=== PATIENT | female | born 1955 | race Caucasian/White ===

== ENCOUNTER → 2019-10-01 | Day surgery (SDC) | payer OTHER ==
--- NOTE | 2019-10-01 11:19 | RAD REPORT ---
EXAM DESCRIPTION: US - Guided FNA Non Breast - 10/01/2019 11:03 am CLINICAL HISTORY: TWO THY LESIONS Left lobe thyroid nodules COMPARISON: No comparisons FINDINGS: Preoperative diagnosis: Left lobe thyroid nodules. Post operative diagnosis: Same. Conscious Sedation: None Fluoroscopy time: None Contrast used: None Estimated blood loss: Minimal Specimens:Total of 10 25 gauge FNA specimens The neck was prepped and draped in the usual sterile fashion. 1% lidocaine was infiltrated into the s ubcutaneous tissues for local anesthesia. Real time ultrasound scanning of the left lobe demonstrated 2 circumscribed nodules; a 15 mm slightly rim calcified inferior nodule is noted without aggressive features; echogenic circumscribed nodule with areas of internal necrotic change mid lobe posteriorly also present measuring 12 mm.. Under ultrasound guidance, using multiple 25 gauge FNA needles, 5 spec imens through each nodule specimens were obtained and sent to pathology for evaluation. There were no complications. IMPRESSION: Successful ultrasound-guided left thyroid FNA procedure x2
--- NOTE | 2019-10-02 11:17 | RAD REPORT ---
EXAM DESCRIPTION: US - Guided FNA Non Breast - 10/01/2019 10:08 am CLINICAL HISTORY: TWO THY LESIONS Left lobe thyroid nodules COMPARISON: No comparisons FINDINGS: Preoperative diagnosis: Left lobe thyroid nodules . Post operative diagnosis: Same. Conscious Sedation: None Fluoroscopy time: None Contrast used: None Estimated blood loss: Minimal Specimens: Total of 10 25 gauge FNA specimens The neck was prepped and draped in the usual sterile fashion. 1% lidocaine was infiltrated into the s ubcutaneous tissues for local anesthesia. Real time ultrasound scanning of the left lobe demonstrated 2 circumscribed nodules; a 15 mm slightly rim calcified inferior nodule is noted without aggressive features; echogenic circumscribed nodule with areas of internal necrotic change mid lobe posteriorly also present measuring 12 mm. . Under ultrasound guidance, using multiple 25 gauge FNA needles, 5 spe cimens through each nodule specimens were obtained and sent to pathology for evaluation. There were n o complications. IMPRESSION: Successful ultrasound-guided left thyroid FNA procedure x2
== END | disposition home or self-care (01) ==
LOC: RAD 09:14
PROVIDERS: ATTEND Otolaryngology
PROC: 0G9G3ZX Drainage of Left Thyroid Gland Lobe, Percutaneous Approach, Diagnostic (ICD-10-PCS; principal; 2019-10-01)
PROC: BG44ZZZ Ultrasonography of Thyroid Gland (ICD-10-PCS; 2019-10-01)
DX: E04.2 Nontoxic multinodular goiter (principal); E03.9 Hypothyroidism, unspecified
CPT/HCPCS: 88162

== ENCOUNTER 2023-09-18 10:10 | Inpatient (IN) | payer OTHER ==
--- OUTSIDE RECORDS SUMMARY | 2023-09-18 10:17 | XMS REPORT | Continuity of Care Document ---
Author Name Unknown Address [address] [facility] [address] [place] [id number] [facility] Address [address] 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 Role Phone NANCI HYMANRandaRANDAL Primary Care Physician UnavailBRIDGET Tyson Attending Clinician BRIDGET Gonzalez Attending Clinician HEAVENLY Greene Attending Clinician Unavailable HEAVENLY HOWE Attending Clinician Unavailable Ned Amezcua NP Attending Clinician [phone] Doctor Unassigned, [place] Attending Clinician [facility], [facility] Attending Clinician Unavailable NED AMEZCUA Attending Clinician UnavailUte Manley MA Attending Clinician UnavailSandip Thornton MD Attending Clinician [phone] [place] Attending Clinician Unavailable Raquel Desai MA Attending Clinician Slava Falcon DO Attending Clinician [phone] HEAVENLY HOWE Admitting Clinician Unavailable Payers Payer Name Policy Type Policy Number Effective Date Expirati on Date Source [employer] MANAGED MEDICARE PPO-ANDREW [id number] 2021 00:00:00 Problems Condition Name Condition Details Condition Category Status Onset Date Resolution Date Last Treatment Date Treating Clinician Comments Source OLYA (stress urinary incontinen ce, female) OLYA (stress urinary incontinen ce, female) Disease Active 10-05 00:00: 00 Overview: Formattin g of this note might be different from the original. Added automatic ally from request for surgery [id number] [facility] Pap smear of cervix not needed Pap smear of cervix not needed Disease Active 10-02 00:00: 00 [facility] Colon cancer screening declined Colon cancer screening declined Disease Active 10-02 00:00: 00 [facility] History of hysterecto my History of hysterecto my Disease Active 10-02 00:00: 00 [facility] Need for vaccinatio n Need for vaccinatio n Disease Active 09-26 00:00: 00 [facility] Screening mammogram for breast cancer Screening mammogram for breast cancer Disease Active 09-26 00:00: 00 [facility] BMI 29.0-29.9, adult BMI 29.0-29.9, adult Disease Active 09-26 00:00: 00 [facility] Urgency of urination Urgency of urination Disease Active 09-23 00:00: 00 [facility] Urge incontinen ce of urine Urge incontinen ce of urine Disease Active 09-23 00:00: 00 [facility] Allergies, Adverse Reactions, Alerts Allergy Name Allergy Type Status Severity Reaction(s) Onset Date Inactive Date Treating Clinician Comments Source NO KNOWN ALLERGIE S Drug Class Active [facility] Social History Social Habit Start Date Stop Date Quantity Comments Source History SDOH Alcohol Comment [facility] History SDOH Alcohol Std Drinks [facility] History SDOH Alcohol Binge [facility] Alcohol intake 2023-02-13 00:00:00 2023-02-13 00:00:00 Ex-drinker (finding) [facility] Exposure to SARS-CoV-2 (event) 2022-11-21 00:00:00 2022-12-01 08:01:00 Not sure [facility] Tobacco use and exposure 2022-09-26 00:00:00 2022-09-26 00:00:00 Smokeless tobacco non-user [facility] History SDOH Alcohol Frequency 2020-09-17 00:00:00 2020-09-17 00:00:00 1 [facility] Sex Assigned At 1955 00:00:00 1955 00:00:00 [facility] Smoking Status Start Date Stop Date Source Never smoked tobacco [facility] Medications Ordered Medication Name Filled Medication Name Start Date Stop Date Current Medication? Ordering Clinician Indication Dosage Frequency Signature (SIG) Comments Components Source estradioL (ESTRACE) 0.01 % (0.1 mg/gram) vaginal cream 02-13 00:00: 00 Yes [id number] Apply 1g vaginally at bedtime 2 times per week [facility] estradioL (ESTRACE) 0.01 % (0.1 mg/gram) vaginal cream 02-13 00:00: 00 Yes [id number] Apply 1g vaginally at bedtime 2 times per week [facility] D5W-LR IV infusion 1,000 mL 10-20 17:15: 00 Yes 1000mL at 125 mL/hr, IV Infusion, CONTINUOUS , Starting on Katya 10/20/22 at 1115, Until Discontinu ed, Routine [facility] D5W-LR IV infusion 1,000 mL 10-20 17:15: 00 10-20 21:50 :25 No 1000mL at 125 mL/hr, IV Infusion, CONTINUOUS , Starting on Katya 10/20/22 at 1115, Until Katya 10/20/22 at 1550, Routine [facility] morpHINE (4 mg/mL) injection 2 mg 10-20 16:47: 49 Yes 2mg 2 mg, Slow IV Push, Q5MIN PRN, 5 doses, Starting on Katya 10/20/22 at 1047, Until Discontinu ed, Routine, Pain (scale 4-6), PACU [facility] proMETHazin e (PHENERGAN) 12.5 mg in NaCl 0.9% (NS) 50 mL IV piggyback 10-20 16:47: 49 Yes 12.5mg 12.5 mg, IV Piggyback, PRN, 1 dose, Starting on Katya 10/20/22 at 1047, Until Discontinu ed, Routine, Nausea and Vomiting (N/V), PACU [facility] morpHINE (4 mg/mL) injection 2 mg 10-20 16:47: 49 10-20 21:50 :25 No 2mg 2 mg, Slow IV Push, Q5MIN PRN, 5 doses, Starting on Katya 10/20/22 at 1047, Until Katya 10/20/22 at 1550, Routine, Pain (scale 4-6), PACU [facility] proMETHazin e (PHENERGAN) 12.5 mg in NaCl 0.9% (NS) 50 mL IV piggyback 10-20 16:47: 49 10-20 21:50 :25 No 12.5mg 12.5 mg, IV Piggyback, PRN, 1 dose, Starting on Katya 10/20/22 at 1047, Until Katya 10/20/22 at 1550, Routine, Nausea and Vomiting (N/V), PACU [facility] conjugated estrogens (PREMARIN) vaginal cream 10-20 16:19: 00 10-20 17:05 :00 No PRN, Starting on Katya 10/20/22 at 1019, Until Katya 10/20/22 at 1105, Routine, Intra-op [facility] vancomycin (VANCOCIN) injection 10-20 16:06: 00 10-20 17:05 :00 No PRN, Starting on Katya 10/20/22 at 1006, Until Katya 10/20/22 at 1105, ANDERS, Intra-op [facility] bupivacaine (preserv free) (SENSORCAIN E MPF) 0.25 % (2.5 mg/mL) injection 10-20 15:47: 00 10-20 17:05 :00 No PRN, Starting on Katya 10/20/22 at 0947, Until Katya 10/20/22 at 1105, Routine, Intra-op [facility] sodium chloride 0.9 % irrigation solution 10-20 15:46: 00 10-20 17:05 :00 No PRN, Starting on Katya 10/20/22 at 0946, Until Katya 10/20/22 at 1105, Intra-op [facility] NaCl 0.9% (NS) injection 10-20 15:46: 00 10-20 17:05 :00 No PRN, Starting on Katya 10/20/22 at 0946, Until Katya 10/20/22 at 1105, Routine, Intra-op [facility] water for irrigation irrigation solution 10-20 15:46: 00 10-20 17:05 :00 No PRN, Starting on Katya 10/20/22 at 0946, Until Katya 10/20/22 at 1105, Routine, Intra-op [facility] CALCIUM ORAL 10-20 13:50: 25 Yes Take by mouth. [facility] multivit with iron,minera ls (MULTIVITAM IN AND MINERALS ORAL) 10-20 13:50: 25 Yes Take by mouth. [facility] ascorbic acid (VITAMIN C ORAL) 10-20 13:50: 25 Yes Take by mouth. [facility] Ubidecar/Fi sh Oil/[place]-3 /Kashif (CO P30-[id number] OIL-OMEGA 3-E ORAL) 10-20 13:50: 25 Yes Take by mouth. [facility] loratadine 10 mg tablet 10-20 13:50: 25 Yes 10mg Take 10 mg by mouth daily. [facility] fluticasone propionate (FLONASE NASAL) 10-20 13:50: 25 Yes Use in each nostril. [facility] Levothyroxi ne 75 mcg capsule 10-20 13:50: 25 Yes Take by mouth. [facility] triamterene -hydrochlor othiazide 37.5-25 mg per capsule 10-20 13:50: 25 Yes 1{capsu le} Take 1 capsule by mouth every morning. [facility] CALCIUM ORAL 10-20 13:50: 25 Yes Take by mouth. [facility] multivit with iron,minera ls (MULTIVITAM IN AND MINERALS ORAL) 10-20 13:50: 25 Yes Take by mouth. [facility] ascorbic acid (VITAMIN C ORAL) 10-20 13:50: 25 Yes Take by mouth. [facility] Ubidecar/Fi sh Oil/[place]-3 /Kashif (CO [id number] OIL-OMEGA 3-E ORAL) 10-20 13:50: 25 Yes Take by mouth. [facility] loratadine 10 mg tablet 10-20 13:50: 25 Yes 10mg Take 10 mg by mouth daily. [facility] fluticasone propionate (FLONASE NASAL) 10-20 13:50: 25 Yes Use in each nostril. [facility] Levothyroxi ne 75 mcg capsule 10-20 13:50: 25 Yes Take by mouth. [facility] triamterene -hydrochlor othiazide 37.5-25 mg per capsule 10-20 13:50: 25 Yes 1{capsu le} Take 1 capsule by mouth every morning. [facility] CALCIUM ORAL 10-20 13:50: 25 Yes Take by mouth. [facility] multivit with iron,minera ls (MULTIVITAM IN AND MINERALS ORAL) 10-20 13:50: 25 Yes Take by mouth. [facility] ascorbic acid (VITAMIN C ORAL) 10-20 13:50: 25 Yes Take by mouth. [facility] Ubidecar/Fi sh Oil/[place]-3 /Kashif (CO [id number] OIL-OMEGA 3-E ORAL) 10-20 13:50: 25 Yes Take by mouth. [facility] loratadine 10 mg tablet 10-20 13:50: 25 Yes 10mg Take 10 mg by mouth daily. [facility] fluticasone propionate (FLONASE NASAL) 10-20 13:50: 25 Yes Use in each nostril. [facility] Levothyroxi ne 75 mcg capsule 10-20 13:50: 25 Yes Take by mouth. [facility] triamterene -hydrochlor othiazide 37.5-25 mg per capsule 10-20 13:50: 25 Yes 1{capsu le} Take 1 capsule by mouth every morning. [facility] CALCIUM ORAL 10-20 13:50: 25 Yes Take by mouth. [facility] multivit with iron,minera ls (MULTIVITAM IN AND MINERALS ORAL) 10-20 13:50: 25 Yes Take by mouth. [facility] ascorbic acid (VITAMIN C ORAL) 10-20 13:50: 25 Yes Take by mouth. [facility] Ubidecar/Fi sh Oil/[place]-3 /Kashif (CO [id number] OIL-OMEGA 3-E ORAL) 10-20 13:50: 25 Yes Take by mouth. [facility] loratadine 10 mg tablet 10-20 13:50: 25 Yes 10mg Take 10 mg by mouth daily. [facility] fluticasone propionate (FLONASE NASAL) 10-20 13:50: 25 Yes Use in each nostril. [facility] Levothyroxi ne 75 mcg capsule 10-20 13:50: 25 Yes Take by mouth. [facility] triamterene -hydrochlor othiazide 37.5-25 mg per capsule 10-20 13:50: 25 Yes 1{capsu le} Take 1 capsule by mouth every morning. [facility] CALCIUM ORAL 10-20 13:50: 25 Yes Take by mouth. [facility] multivit with iron,minera ls (MULTIVITAM IN AND MINERALS ORAL) 10-20 13:50: 25 Yes Take by mouth. [facility] ascorbic acid (VITAMIN C ORAL) 10-20 13:50: 25 Yes Take by mouth. [facility] Ubidecar/Fi sh Oil/[place]-3 /Kashif (CO [id number] OIL-OMEGA 3-E ORAL) 10-20 13:50: 25 Yes Take by mouth. [facility] loratadine 10 mg tablet 10-20 13:50: 25 Yes 10mg Take 10 mg by mouth daily. [facility] fluticasone propionate (FLONASE NASAL) 10-20 13:50: 25 Yes Use in each nostril. [facility] Levothyroxi ne 75 mcg capsule 10-20 13:50: 25 Yes Take by mouth. [facility] triamterene -hydrochlor othiazide 37.5-25 mg per capsule 10-20 13:50: 25 Yes 1{capsu le} Take 1 capsule by mouth every morning. [facility] CALCIUM ORAL 10-20 13:50: 25 Yes Take by mouth. [facility] multivit with iron,minera ls (MULTIVITAM IN AND MINERALS ORAL) 10-20 13:50: 25 Yes Take by mouth. [facility] ascorbic acid (VITAMIN C ORAL) 10-20 13:50: 25 Yes Take by mouth. [facility] Ubidecar/Fi sh Oil/[place]-3 /Kashif (CO X99-[id number] OIL-OMEGA 3-E ORAL) 10-20 13:50: 25 Yes Take by mouth. [facility] loratadine 10 mg tablet 10-20 13:50: 25 Yes 10mg Take 10 mg by mouth daily. [facility] fluticasone propionate (FLONASE NASAL) 10-20 13:50: 25 Yes Use in each nostril. [facility] Levothyroxi ne 75 mcg capsule 10-20 13:50: 25 Yes Take by mouth. [facility] triamterene -hydrochlor othiazide 37.5-25 mg per capsule 10-20 13:50: 25 Yes 1{capsu le} Take 1 capsule by mouth every morning. [facility] CALCIUM ORAL 10-20 13:50: 25 Yes Take by mouth. [facility] multivit with iron,minera ls (MULTIVITAM IN AND MINERALS ORAL) 10-20 13:50: 25 Yes Take by mouth. [facility] ascorbic acid (VITAMIN C ORAL) 10-20 13:50: 25 Yes Take by mouth. [facility] Ubidecar/Fi sh Oil/[place]-3 /Kashif (CO [id number] OIL-OMEGA 3-E ORAL) 10-20 13:50: 25 Yes Take by mouth. [facility] loratadine 10 mg tablet 10-20 13:50: 25 Yes 10mg Take 10 mg by mouth daily. [facility] fluticasone propionate (FLONASE NASAL) 10-20 13:50: 25 Yes Use in each nostril. [facility] Levothyroxi ne 75 mcg capsule 10-20 13:50: 25 Yes Take by mouth. [facility] triamterene -hydrochlor othiazide 37.5-25 mg per capsule 10-20 13:50: 25 Yes 1{capsu le} Take 1 capsule by mouth every morning. [facility] CALCIUM ORAL 10-20 13:50: 25 Yes Take by mouth. [facility] multivit with iron,minera ls (MULTIVITAM IN AND MINERALS ORAL) 10-20 13:50: 25 Yes Take by mouth. [facility] ascorbic acid (VITAMIN C ORAL) 10-20 13:50: 25 Yes Take by mouth. [facility] Ubidecar/Fi sh Oil/[place]-3 /Kashif (CO S38-[id number] OIL-OMEGA 3-E ORAL) 10-20 13:50: 25 Yes Take by mouth. [facility] loratadine 10 mg tablet 10-20 13:50: 25 Yes 10mg Take 10 mg by mouth daily. [facility] fluticasone propionate (FLONASE NASAL) 10-20 13:50: 25 Yes Use in each nostril. [facility] Levothyroxi ne 75 mcg capsule 10-20 13:50: 25 Yes Take by mouth. [facility] triamterene -hydrochlor othiazide 37.5-25 mg per capsule 10-20 13:50: 25 Yes 1{capsu le} Take 1 capsule by mouth every morning. [facility] CALCIUM ORAL 10-20 13:50: 25 Yes Take by mouth. [facility] multivit with iron,minera ls (MULTIVITAM IN AND MINERALS ORAL) 10-20 13:50: 25 Yes Take by mouth. [facility] ascorbic acid (VITAMIN C ORAL) 10-20 13:50: 25 Yes Take by mouth. [facility] Ubidecar/Fi sh Oil/[place]-3 /Kashif (CO [id number] OIL-OMEGA 3-E ORAL) 10-20 13:50: 25 Yes Take by mouth. [facility] loratadine 10 mg tablet 10-20 13:50: 25 Yes 10mg Take 10 mg by mouth daily. [facility] fluticasone propionate (FLONASE NASAL) 10-20 13:50: 25 Yes Use in each nostril. [facility] Levothyroxi ne 75 mcg capsule 10-20 13:50: 25 Yes Take by mouth. [facility] triamterene -hydrochlor othiazide 37.5-25 mg per capsule 10-20 13:50: 25 Yes 1{capsu le} Take 1 capsule by mouth every morning. [facility] CALCIUM ORAL 10-20 13:50: 25 Yes Take by mouth. [facility] multivit with iron,minera ls (MULTIVITAM IN AND MINERALS ORAL) 10-20 13:50: 25 Yes Take by mouth. [facility] ascorbic acid (VITAMIN C ORAL) 10-20 13:50: 25 Yes Take by mouth. [facility] Ubidecar/Fi sh Oil/[place]-3 /Kashif (CO D23-WHAK OIL-OMEGA 3-E ORAL) 10-20 13:50: 25 Yes Take by mouth. [facility] loratadine 10 mg tablet 10-20 13:50: 25 Yes 10mg Take 10 mg by mouth daily. [facility] fluticasone propionate (FLONASE NASAL) 10-20 13:50: 25 Yes Use in each nostril. [facility] Levothyroxi ne 75 mcg capsule 10-20 13:50: 25 Yes Take by mouth. [facility] triamterene -hydrochlor othiazide 37.5-25 mg per capsule 10-20 13:50: 25 Yes 1{capsu le} Take 1 capsule by mouth every morning. [facility] CALCIUM ORAL 10-20 13:50: 25 Yes Take by mouth. [facility] multivit with iron,minera ls (MULTIVITAM IN AND MINERALS ORAL) 10-20 13:50: 25 Yes Take by mouth. [facility] ascorbic acid (VITAMIN C ORAL) 10-20 13:50: 25 Yes Take by mouth. [facility] Ubidecar/Fi sh Oil/[place]-3 /Kashif (CO [id number]-DJWK OIL-OMEGA 3-E ORAL) 10-20 13:50: 25 Yes Take by mouth. [facility] loratadine 10 mg tablet 10-20 13:50: 25 Yes 10mg Take 10 mg by mouth daily. [facility] fluticasone propionate (FLONASE NASAL) 10-20 13:50: 25 Yes Use in each nostril. [facility] Levothyroxi ne 75 mcg capsule 10-20 13:50: 25 Yes Take by mouth. [facility] triamterene -hydrochlor othiazide 37.5-25 mg per capsule 10-20 13:50: 25 Yes 1{capsu le} Take 1 capsule by mouth every morning. [facility] CALCIUM ORAL 10-20 13:50: 25 Yes Take by mouth. [facility] multivit with iron,minera ls (MULTIVITAM IN AND MINERALS ORAL) 10-20 13:50: 25 Yes Take by mouth. [facility] ascorbic acid (VITAMIN C ORAL) 10-20 13:50: 25 Yes Take by mouth. [facility] Ubidecar/Fi sh Oil/[place]-3 /Kashif (CO V14-[id number] OIL-OMEGA 3-E ORAL) 10-20 13:50: 25 Yes Take by mouth. [facility] loratadine 10 mg tablet 10-20 13:50: 25 Yes 10mg Take 10 mg by mouth daily. [facility] fluticasone propionate (FLONASE NASAL) 10-20 13:50: 25 Yes Use in each nostril. [facility] Levothyroxi ne 75 mcg capsule 10-20 13:50: 25 Yes Take by mouth. [facility] triamterene -hydrochlor othiazide 37.5-25 mg per capsule 10-20 13:50: 25 Yes 1{capsu le} Take 1 capsule by mouth every morning. [facility] lactated ringers IV infusion 1,000 mL 10-20 13:30: 00 10-20 13:42 :00 No 1000mL at 42 mL/hr, 1,000 mL, IV Infusion, ONCE, 1 dose, On Katya 10/20/22 at 0730, Routine, DSU Pre-op [facility] lactated ringers IV infusion 1,000 mL 10-20 13:30: 00 10-20 13:42 :00 No 1000mL at 42 mL/hr, 1,000 mL, IV Infusion, ONCE, 1 dose, On Katya 10/20/22 at 0730, Routine, DSU Pre-op [facility] ibuprofen 800 mg tablet 3-0 2-16 00:00: 00 Yes [id number] 800mg Take 1 tablet by mouth every 8 (eight) hours as needed for Pain (scale 1-3) or Pain (scale 4-6). [facility] ibuprofen 800 mg tablet 3-0 2-16 00:00: 00 Yes [id number] 800mg Take 1 tablet by mouth every 8 (eight) hours as needed for Pain (scale 1-3) or Pain (scale 4-6). [facility] ibuprofen 800 mg tablet 3-0 2-16 00:00: 00 Yes [id number] 800mg Take 1 tablet by mouth every 8 (eight) hours as needed for Pain (scale 1-3) or Pain (scale 4-6). [facility] ibuprofen 800 mg tablet 3-0 2-16 00:00: 00 Yes [id number] 800mg Take 1 tablet by mouth every 8 (eight) hours as needed for Pain (scale 1-3) or Pain (scale 4-6). [facility] ibuprofen 800 mg tablet 3-0 2-16 00:00: 00 Yes [id number] 800mg Take 1 tablet by mouth every 8 (eight) hours as needed for Pain (scale 1-3) or Pain (scale 4-6). [facility] ibuprofen 800 mg tablet 3-0 2-16 00:00: 00 Yes [id number] 800mg Take 1 tablet by mouth every 8 (eight) hours as needed for Pain (scale 1-3) or Pain (scale 4-6). [facility] ibuprofen 800 mg tablet 3-0 2-16 00:00: 00 Yes [id number] 800mg Take 1 tablet by mouth every 8 (eight) hours as needed for Pain (scale 1-3) or Pain (scale 4-6). [facility] ibuprofen 800 mg tablet 3-0 2-16 00:00: 00 Yes [id number] 800mg Take 1 tablet by mouth every 8 (eight) hours as needed for Pain (scale 1-3) or Pain (scale 4-6). [facility] ibuprofen 800 mg tablet 3-0 2-16 00:00: 00 Yes [id number] 800mg Take 1 tablet by mouth every 8 (eight) hours as needed for Pain (scale 1-3) or Pain (scale 4-6). [facility] ibuprofen 800 mg tablet 2-16 00:00: 00 Yes [id number] 800mg Take 1 tablet by mouth every 8 (eight) hours as needed for Pain (scale 1-3) or Pain (scale 4-6). [facility] ibuprofen 800 mg tablet 16 00:00: 00 Yes [id number] 800mg Take 1 tablet by mouth every 8 (eight) hours as needed for Pain (scale 1-3) or Pain (scale 4-6). [facility] ibuprofen 800 mg tablet 16 00:00: 00 Yes [id number] 800mg Take 1 tablet by mouth every 8 (eight) hours as needed for Pain (scale 1-3) or Pain (scale 4-6). [facility] traMADoL 50 mg tablet 16 00:00: 00 10-28 05:59 :00 No [id number] 50mg Take 1 tablet by mouth every 6 (six) hours as needed for Pain (scale 7-10) for up to 7 days. Indication s: acute pain [facility] traMADoL 50 mg tablet 16 00:00: 00 10-28 05:59 :00 No [id number] 50mg Take 1 tablet by mouth every 6 (six) hours as needed for Pain (scale 7-10) for up to 7 days. Indication s: acute pain [facility] traMADoL 50 mg tablet -16 00:00: 00 10-28 05:59 :00 No [id number] 50mg Take 1 tablet by mouth every 6 (six) hours as needed for Pain (scale 7-10) for up to 7 days. Indication s: acute pain [facility] sulfamethox azole-trime thoprim 800-160 mg per tablet 2-06 00:00: 00 10-18 05:59 :00 No [id number] 1{tbl} Take 1 tablet by mouth in the morning and 1 tablet in the evening. Do all this for 7 days. [facility] sulfamethox azole-trime thoprim 800-160 mg per tablet 10-10 00:00: 00 10-18 05:59 :00 No [id number] 1{tbl} Take 1 tablet by mouth in the morning and 1 tablet in the evening. Do all this for 7 days. [facility] CALCIUM ORAL 10-07 10:45: 14 Yes Take by mouth. [facility] multivit with iron,minera ls (MULTIVITAM IN AND MINERALS ORAL) 10-07 10:45: 14 Yes Take by mouth. [facility] ascorbic acid (VITAMIN C ORAL) 10-07 10:45: 14 Yes Take by mouth. [facility] Ubidecar/Fi sh Oil/[place]-3 /Kashif (CO D55-[id number] OIL-OMEGA 3-E ORAL) 10-07 10:45: 14 Yes Take by mouth. [facility] fluticasone propionate (FLONASE NASAL) 10-07 10:45: 14 Yes Use in each nostril. [facility] Levothyroxi ne 75 mcg capsule 10-07 10:45: 14 Yes Take by mouth. [facility] triamterene -hydrochlor othiazide 37.5-25 mg per capsule 10-07 10:45: 14 Yes 1{capsu le} Take 1 capsule by mouth every morning. [facility] CALCIUM ORAL 10-07 10:45: 14 Yes Take by mouth. [facility] multivit with iron,minera ls (MULTIVITAM IN AND MINERALS ORAL) 10-07 10:45: 14 Yes Take by mouth. [facility] ascorbic acid (VITAMIN C ORAL) 10-07 10:45: 14 Yes Take by mouth. [facility] Ubidecar/Fi sh Oil/[place]-3 /Kashif (CO F48-[id number] OIL-OMEGA 3-E ORAL) 10-07 10:45: 14 Yes Take by mouth. [facility] fluticasone propionate (FLONASE NASAL) 10-07 10:45: 14 Yes Use in each nostril. [facility] Levothyroxi ne 75 mcg capsule 10-07 10:45: 14 Yes Take by mouth. [facility] triamterene -hydrochlor othiazide 37.5-25 mg per capsule 10-07 10:45: 14 Yes 1{capsu le} Take 1 capsule by mouth every morning. [facility] loratadine 10 mg tablet 10-05 09:17: 18 Yes 10mg Take 10 mg by mouth daily. [facility] loratadine 10 mg tablet 10-05 09:17: 18 Yes 10mg Take 10 mg by mouth daily. [facility] loratadine 10 mg tablet 10-05 09:17: 18 Yes 10mg Take 10 mg by mouth daily. [facility] loratadine 10 mg tablet 10-05 09:17: 18 Yes 10mg Take 10 mg by mouth daily. [facility] estradioL (ESTRACE) 0.01 % (0.1 mg/gram) vaginal cream 10-05 00:00: 00 Yes [id number] Apply 1g vaginally at bedtime every night for 2 weeks and then apply 1g vaginally at bedtime 2 times per week [facility] estradioL (ESTRACE) 0.01 % (0.1 mg/gram) vaginal cream 10-05 00:00: 00 Yes [id number] Apply 1g vaginally at bedtime every night for 2 weeks and then apply 1g vaginally at bedtime 2 times per week [facility] estradioL (ESTRACE) 0.01 % (0.1 mg/gram) vaginal cream 10-05 00:00: 00 Yes [id number] Apply 1g vaginally at bedtime every night for 2 weeks and then apply 1g vaginally at bedtime 2 times per week [facility] estradioL (ESTRACE) 0.01 % (0.1 mg/gram) vaginal cream 10-05 00:00: 00 Yes [id number] Apply 1g vaginally at bedtime every night for 2 weeks and then apply 1g vaginally at bedtime 2 times per week [facility] estradioL (ESTRACE) 0.01 % (0.1 mg/gram) vaginal cream 10-05 00:00: 00 Yes [id number] Apply 1g vaginally at bedtime every night for 2 weeks and then apply 1g vaginally at bedtime 2 times per week [facility] estradioL (ESTRACE) 0.01 % (0.1 mg/gram) vaginal cream 10-05 00:00: 00 Yes [id number] Apply 1g vaginally at bedtime every night for 2 weeks and then apply 1g vaginally at bedtime 2 times per week [facility] estradioL (ESTRACE) 0.01 % (0.1 mg/gram) vaginal cream 10-05 00:00: 00 Yes [id number] Apply 1g vaginally at bedtime every night for 2 weeks and then apply 1g vaginally at bedtime 2 times per week [facility] estradioL (ESTRACE) 0.01 % (0.1 mg/gram) vaginal cream 10-05 00:00: 00 Yes [id number] Apply 1g vaginally at bedtime every night for 2 weeks and then apply 1g vaginally at bedtime 2 times per week [facility] estradioL (ESTRACE) 0.01 % (0.1 mg/gram) vaginal cream 10-05 00:00: 00 Yes [id number] Apply 1g vaginally at bedtime every night for 2 weeks and then apply 1g vaginally at bedtime 2 times per week [facility] estradioL (ESTRACE) 0.01 % (0.1 mg/gram) vaginal cream 10-05 00:00: 00 Yes [id number] Apply 1g vaginally at bedtime every night for 2 weeks and then apply 1g vaginally at bedtime 2 times per week [facility] estradioL (ESTRACE) 0.01 % (0.1 mg/gram) vaginal cream 10-05 00:00: 00 Yes [id number] Apply 1g vaginally at bedtime every night for 2 weeks and then apply 1g vaginally at bedtime 2 times per week [facility] estradioL (ESTRACE) 0.01 % (0.1 mg/gram) vaginal cream 10-05 00:00: 00 Yes [id number] Apply 1g vaginally at bedtime every night for 2 weeks and then apply 1g vaginally at bedtime 2 times per week [facility] estradioL (ESTRACE) 0.01 % (0.1 mg/gram) vaginal cream 10-05 00:00: 00 Yes [id number] Apply 1g vaginally at bedtime every night for 2 weeks and then apply 1g vaginally at bedtime 2 times per week [facility] estradioL (ESTRACE) 0.01 % (0.1 mg/gram) vaginal cream 10-05 00:00: 00 Yes [id number] Apply 1g vaginally at bedtime every night for 2 weeks and then apply 1g vaginally at bedtime 2 times per week [facility] estradioL (ESTRACE) 0.01 % (0.1 mg/gram) vaginal cream 10-05 00:00: 00 Yes [id number] Apply 1g vaginally at bedtime every night for 2 weeks and then apply 1g vaginally at bedtime 2 times per week [facility] estradioL (ESTRACE) 0.01 % (0.1 mg/gram) vaginal cream 10-05 00:00: 00 Yes [id number] Apply 1g vaginally at bedtime every night for 2 weeks and then apply 1g vaginally at bedtime 2 times per week [facility] darifenacin 7.5 mg 24 hr tablet 10-22 00:00: 00 Yes [id number] 7.5mg Take 1 tablet by mouth daily. [facility] darifenacin 7.5 mg 24 hr tablet 2021-0 10-22 00:00: 00 Yes [id number] 7.5mg Take 1 tablet by mouth daily. [facility] darifenacin 7.5 mg 24 hr tablet 2021-10-22 00:00: 00 Yes [id number] 7.5mg Take 1 tablet by mouth daily. [facility] darifenacin 7.5 mg 24 hr tablet 10-22 00:00: 00 Yes [id number] 7.5mg Take 1 tablet by mouth daily. [facility] darifenacin 7.5 mg 24 hr tablet 2021-0 2-18 00:00: 00 Yes [id number] 7.5mg Take 1 tablet by mouth daily. [facility] darifenacin 7.5 mg 24 hr tablet 2021-0 2-18 00:00: 00 Yes [id number] 7.5mg Take 1 tablet by mouth daily. [facility] loratadine 10 mg tablet 0 09-23 09:06: 38 Yes 10mg Take 10 mg by mouth daily. [facility] fluticasone propionate (FLONASE NASAL) 0 09-23 09:06: 38 Yes Use in each nostril. [facility] loratadine 10 mg tablet 0 09-23 09:06: 38 Yes 10mg Take 10 mg by mouth daily. [facility] fluticasone propionate (FLONASE NASAL) 09-23 09:06: 38 Yes Use in each nostril. [facility] loratadine 10 mg tablet 0 09-23 09:06: 38 Yes 10mg Take 10 mg by mouth daily. [facility] fluticasone propionate (FLONASE NASAL) 09-23 09:06: 38 Yes Use in each nostril. [facility] loratadine 10 mg tablet 09-23 09:06: 38 Yes 10mg Take 10 mg by mouth daily. [facility] fluticasone propionate (FLONASE NASAL) 09-23 09:06: 38 Yes Use in each nostril. [facility] loratadine 10 mg tablet 0 09-23 09:06: 38 Yes 10mg Take 10 mg by mouth daily. [facility] fluticasone propionate (FLONASE NASAL) 0 09-23 09:06: 38 Yes Use in each nostril. [facility] loratadine 10 mg tablet 0 09-23 09:06: 38 Yes 10mg Take 10 mg by mouth daily. [facility] fluticasone propionate (FLONASE NASAL) 09-23 09:06: 38 Yes Use in each nostril. [facility] loratadine 10 mg tablet 09-23 09:06: 38 Yes 10mg Take 10 mg by mouth daily. [facility] fluticasone propionate (FLONASE NASAL) 09-23 09:06: 38 Yes Use in each nostril. [facility] fluticasone propionate (FLONASE NASAL) 09-23 09:06: 38 Yes Use in each nostril. [facility] fluticasone propionate (FLONASE NASAL) 09-23 09:06: 38 Yes Use in each nostril. [facility] darifenacin 7.5 mg 24 hr tablet 09-23 00:00: 00 Yes [id number] 7.5mg Take 1 tablet by mouth daily. [facility] darifenacin 7.5 mg 24 hr tablet 09-23 00:00: 00 10-22 00:00 :00 No [id number] 7.5mg Take 1 tablet by mouth daily. [facility] levothyroxi ne 75 mcg tablet 2020-09 216 00:00: 00 09-23 00:00 :00 No [facility] CALCIUM ORAL 09-17 09:01: 46 Yes Take by mouth. [facility] multivit with iron,minera ls (MULTIVITAM IN AND MINERALS ORAL) 09-17 09:01: 46 Yes Take by mouth. [facility] ascorbic acid (VITAMIN C ORAL) 09-17 09:01: 46 Yes Take by mouth. [facility] Ubidecar/Fi sh Oil/[place]-3 /Kashif (CO Y34-ITAM OIL-OMEGA 3-E ORAL) 09-17 09:01: 46 Yes Take by mouth. [facility] Levothyroxi ne 75 mcg capsule 09-17 09:01: 46 Yes Take by mouth. [facility] triamterene -hydrochlor othiazide 37.5-25 mg per capsule 09-17 09:01: 46 Yes 1{capsu le} Take 1 capsule by mouth every morning. [facility] CALCIUM ORAL 09-17 09:01: 46 Yes Take by mouth. [facility] multivit with iron,minera ls (MULTIVITAM IN AND MINERALS ORAL) 09-17 09:01: 46 Yes Take by mouth. [facility] ascorbic acid (VITAMIN C ORAL) 09-17 09:01: 46 Yes Take by mouth. [facility] Ubidecar/Fi sh Oil/[place]-3 /Kashif (CO I65-UMNC OIL-OMEGA 3-E ORAL) 09-17 09:01: 46 Yes Take by mouth. [facility] Levothyroxi ne 75 mcg capsule 09-17 09:01: 46 Yes Take by mouth. [facility] triamterene -hydrochlor othiazide 37.5-25 mg per capsule 09-17 09:01: 46 Yes 1{capsu le} Take 1 capsule by mouth every morning. [facility] CALCIUM ORAL 09-17 09:01: 46 Yes Take by mouth. [facility] multivit with iron,minera ls (MULTIVITAM IN AND MINERALS ORAL) 09-17 09:01: 46 Yes Take by mouth. [facility] ascorbic acid (VITAMIN C ORAL) 09-17 09:01: 46 Yes Take by mouth. [facility] Ubidecar/Fi sh Oil/[place]-3 /Kashif (CO P45-JMXV OIL-OMEGA 3-E ORAL) 09-17 09:01: 46 Yes Take by mouth. [facility] Levothyroxi ne 75 mcg capsule 09-17 09:01: 46 Yes Take by mouth. [facility] triamterene -hydrochlor othiazide 37.5-25 mg per capsule 09-17 09:01: 46 Yes 1{capsu le} Take 1 capsule by mouth every morning. [facility] CALCIUM ORAL 09-17 09:01: 46 Yes Take by mouth. [facility] multivit with iron,minera ls (MULTIVITAM IN AND MINERALS ORAL) 09-17 09:01: 46 Yes Take by mouth. [facility] ascorbic acid (VITAMIN C ORAL) 09-17 09:01: 46 Yes Take by mouth. [facility] Ubidecar/Fi sh Oil/[place]-3 /Kashif (CO O97-UPEH OIL-OMEGA 3-E ORAL) 09-17 09:01: 46 Yes Take by mouth. [facility] Levothyroxi ne 75 mcg capsule 09-17 09:01: 46 Yes Take by mouth. [facility] triamterene -hydrochlor othiazide 37.5-25 mg per capsule 09-17 09:01: 46 Yes 1{capsu le} Take 1 capsule by mouth every morning. [facility] CALCIUM ORAL 09-17 09:01: 46 Yes Take by mouth. [facility] multivit with iron,minera ls (MULTIVITAM IN AND MINERALS ORAL) 09-17 09:01: 46 Yes Take by mouth. [facility] ascorbic acid (VITAMIN C ORAL) 09-17 09:01: 46 Yes Take by mouth. [facility] Ubidecar/Fi sh Oil/[place]-3 /Kashif (CO K61-GIKU OIL-OMEGA 3-E ORAL) 09-17 09:01: 46 Yes Take by mouth. [facility] Levothyroxi ne 75 mcg capsule 09-17 09:01: 46 Yes Take by mouth. [facility] triamterene -hydrochlor othiazide 37.5-25 mg per capsule 09-17 09:01: 46 Yes 1{capsu le} Take 1 capsule by mouth every morning. [facility] CALCIUM ORAL 09-17 09:01: 46 Yes Take by mouth. [facility] multivit with iron,minera ls (MULTIVITAM IN AND MINERALS ORAL) 09-17 09:01: 46 Yes Take by mouth. [facility] ascorbic acid (VITAMIN C ORAL) 09-17 09:01: 46 Yes Take by mouth. [facility] Ubidecar/Fi sh Oil/[place]-3 /Kashif (CO I32-AMCU OIL-OMEGA 3-E ORAL) 09-17 09:01: 46 Yes Take by mouth. [facility] Levothyroxi ne 75 mcg capsule 09-17 09:01: 46 Yes Take by mouth. [facility] triamterene -hydrochlor othiazide 37.5-25 mg per capsule 09-17 09:01: 46 Yes 1{capsu le} Take 1 capsule by mouth every morning. [facility] CALCIUM ORAL 09-17 09:01: 46 Yes Take by mouth. [facility] multivit with iron,minera ls (MULTIVITAM IN AND MINERALS ORAL) 09-17 09:01: 46 Yes Take by mouth. [facility] ascorbic acid (VITAMIN C ORAL) 09-17 09:01: 46 Yes Take by mouth. [facility] Ubidecar/Fi sh Oil/[place]-3 /Kashif (CO A55-PEZO OIL-OMEGA 3-E ORAL) 09-17 09:01: 46 Yes Take by mouth. [facility] Levothyroxi ne 75 mcg capsule 09-17 09:01: 46 Yes Take by mouth. [facility] triamterene -hydrochlor othiazide 37.5-25 mg per capsule 09-17 09:01: 46 Yes 1{capsu le} Take 1 capsule by mouth every morning. [facility] CALCIUM ORAL 09-17 09:01: 46 Yes Take by mouth. [facility] multivit with iron,minera ls (MULTIVITAM IN AND MINERALS ORAL) 09-17 09:01: 46 Yes Take by mouth. [facility] ascorbic acid (VITAMIN C ORAL) 09-17 09:01: 46 Yes Take by mouth. [facility] Ubidecar/Fi sh Oil/[place]-3 /Kashif (CO H78-BYJZ OIL-OMEGA 3-E ORAL) 09-17 09:01: 46 Yes Take by mouth. [facility] Levothyroxi ne 75 mcg capsule 09-17 09:01: 46 Yes Take by mouth. [facility] triamterene -hydrochlor othiazide 37.5-25 mg per capsule 09-17 09:01: 46 Yes 1{capsu le} Take 1 capsule by mouth every morning. [facility] CALCIUM ORAL 09-17 09:01: 46 Yes Take by mouth. [facility] multivit with iron,minera ls (MULTIVITAM IN AND MINERALS ORAL) 09-17 09:01: 46 Yes Take by mouth. [facility] ascorbic acid (VITAMIN C ORAL) 09-17 09:01: 46 Yes Take by mouth. [facility] Ubidecar/Fi sh Oil/[place]-3 /Kashif (CO K68-GENS OIL-OMEGA 3-E ORAL) 09-17 09:01: 46 Yes Take by mouth. [facility] Levothyroxi ne 75 mcg capsule 09-17 09:01: 46 Yes Take by mouth. [facility] triamterene -hydrochlor othiazide 37.5-25 mg per capsule 09-17 09:01: 46 Yes 1{capsu le} Take 1 capsule by mouth every morning. [facility] Vital Signs Vital Name Observation Time Observation Value Comments Malorie de luna Systolic blood pressure 2023-02-13 20:16:00 129 mm[Hg] [facility] Diastolic blood pressure 2023-02-13 20:16:00 79 mm[Hg] [facility] Heart rate 2023-02-13 20:16:00 71 /[facility] temperature 2023-02-13 20:16:00 36.67 Adriana [facility] Respiratory rate 2023-02-13 20:16:00 18 /min [facility] Body height 2023-02-13 20:16:00 162.6 cm [facility] Body weight 2023-02-13 20:16:00 78.926 kg [facility] BMI 2023-02-13 20:16:00 29.87 kg/m2 [facility] Systolic blood pressure 2022-12-02 20:55:00 109 mm[Hg] [facility] Diastolic blood pressure 2022-12-02 20:55:00 69 mm[Hg] [facility] Heart rate 2022-12-02 20:55:00 69 /min [facility] Body temperature 2022-12-02 20:55:00 36.78 Adriana [facility] Body height 2022-12-02 20:55:00 162.6 cm [facility] Body weight 2022-12-02 20:55:00 80.559 kg Univ [facility] BMI 2022-12-02 20:55:00 30.48 kg/m2 [facility] Systolic blood pressure 2022-11-04 21:44:00 105 mm[Hg] [facility] Diastolic blood pressure 2022-11-04 21:44:00 67 mm[Hg] [facility] Heart rate 2022-11-04 21:44:00 75 /min [facility] Body temperature 2022-11-04 21:44:00 36.89 Adriana [facility] Respiratory rate 2022-11-04 21:44:00 18 /min [facility] Body height 2022-11-04 21:44:00 162.6 cm [facility] Body weight 2022-11-04 21:44:00 78.926 kg [facility] BMI 2022-11-04 21:44:00 29.87 kg/m2 [facility] Systolic blood pressure 2022-10-20 18:36:00 104 mm[Hg] [facility] Diastolic blood pressure 2022-10-20 18:36:00 66 mm[Hg] [facility] Heart rate 2022-10-20 18:36:00 77 /min Unive [facility] Respiratory rate 2022-10-20 18:36:00 16 /min [facility] Oxygen saturation in Arterial blood by Pulse oximetry 2022-10-20 18:36:00 99 /min [facility] Body temperature 2022-10-20 16:58:00 36.28 Adriana [facility] Body height 2022-10-20 15:03:00 162.6 cm [facility] Body weight 2022-10-20 15:03:00 79.379 kg [facility] BMI 2022-10-20 15:03:00 30.04 kg/m2 [facility] Body height 2022-10-20 15:03:00 162.6 cm [facility] Body weight 2022-10-20 15:03:00 79.379 kg [facility] BMI 2022-10-20 15:03:00 30.04 kg/m2 [facility] Systolic blood pressure 2022-10-20 13:36:00 104 mm[Hg] [facility] Diastolic blood pressure 2022-10-20 13:36:00 66 mm[Hg] [facility] Heart rate 2022-10-20 13:36:00 76 /min Unive [facility] Body temperature 2022-10-20 13:36:00 36.11 Adriana [facility] Respiratory rate 2022-10-20 13:36:00 18 /min [facility] Oxygen saturation in Arterial blood by Pulse oximetry 2022-10-20 13:36:00 97 /min [facility] Systolic blood pressure 2022-09-26 15:21:00 126 mm[Hg] [facility] Diastolic blood pressure 2022-09-26 15:21:00 83 mm[Hg] [facility] Heart rate 2022-09-26 15:21:00 73 /min Unive [facility] Body temperature 2022-09-26 15:21:00 36.78 Adriana [facility] Respiratory rate 2022-09-26 15:21:00 16 /min [facility] Body height 2022-09-26 15:21:00 162.6 cm [facility] Body weight 2022-09-26 15:21:00 78.064 kg [facility] BMI 2022-09-26 15:21:00 29.54 kg/m2 [facility] Oxygen saturation in Arterial blood by Pulse oximetry 2022-09-26 15:21:00 97 /min [facility] Systolic blood pressure 2021-09-23 15:14:00 121 mm[Hg] [facility] Diastolic blood pressure 2021-09-23 15:14:00 83 mm[Hg] [facility] Heart rate 2021-09-23 15:03:00 81 /[facility] Body temperature 2021-09-23 15:03:00 36.83 Adriana [facility] Respiratory rate 2021-09-23 15:03:00 18 /min [facility] Body height 2021-09-23 15:03:00 162.6 cm [facility] Body weight 2021-09-23 15:03:00 77.565 kg [facility] BMI 2021-09-23 15:03:00 29.35 kg/m2 [facility] Procedures Procedure Date / Time Performed Performing Clinician Source POCT URINALYSIS W/O SPECIFIC GRAVITY 2022-12-02 20:51:00 Heavenly Howe [facility] EXTERNAL PROVIDER - WOMEN'S SERVICES RADIOLOGY 2022-11-25 05:01:00 Doctor Unassigned, [place] [facility] EXTERNAL MAMMOGRAM 2022-11-25 00:00:00 Sharonda Amezcua [facility] POCT URINALYSIS W/O SPECIFIC GRAVITY 2022-11-04 21:43:00 Heavenly Howe [facility] PATIENT FINANCIAL POLICY 2022-11-04 21:06:36 Doctor Unassigned, [place] [facility] TENSION FREE VAGINAL TAPE PROCEDURE 2022-10-20 14:55:00 Heavenly Howe [facility] CYSTOURETHROSCOPY 2022-10-20 14:55:00 Heavenly Howe [facility] EXAM UNDER ANESTHESIA 2022-10-20 14:55:00 Tiffani Howe [facility] DAY SURGERY - ADC 2022-10-20 06:01:00 Doctor Claribel ssigned, [place] [facility] ASSIGNMENT OF BENEFITS 2022-10-05 14:54:43 Docto r Unassigned, [place] [facility] PATIENT QUESTIONNAIRE 2022-10-05 06:01:00 Doctor Unassigned, [place] [facility] PATIENT QUESTIONNAIRE 2022-10-05 06:01:00 Doctor Unassigned, [place] [facility] EXTERNAL MAMMOGRAM 2021-12-01 00:00:00 Doctor Un assigned, [place] [facility] POCT URINALYSIS W/O SPECIFIC GRAVITY 2021-09-23 00:00:00 Sandip Villegas [facility] Encounters Start Date/Time End Date/Time Encounter Type Admission Type Attending [facility] Facility Care Department Encounter ID Source 2023-09-26 11:30:00 2023-09-26 11:30:00 Outpatient [facility] [id number] [facility] 2023-02-13 14:30:00 2023-02-13 15:38:53 Outpatient R HEAVENLY HOWE [facility] [id number] [facility] 2023-02-13 14:30:00 2023-02-13 15:38:53 Office Visit Heavenly Howe [facility] 1.2.840.114 350.1.13.10 4.2.7.2.686 [id number] [facility] 2022-12-02 15:30:00 2022-12-02 16:16:30 Outpatient R HEAVENLY HOWE [facility] [id number] [facility] 2022-12-02 15:30:00 2022-12-02 16:16:30 Office Visit Heavenly Howe [facility] 1.2.840.114 350.1.13.10 4.2.7.2.686 [id number] [facility] 2022-11-29 00:00:00 2022-11-29 00:00:00 Abstract Ned Amezcua [facility] 1.2.840.114 350.1.13.10 4.2.7.2.686 [id number] [facility] 2022-11-25 00:00:00 2022-11-25 00:00:00 Orders Only Doctor Unassigned, [place] [facility] 1.2840.114 350.1.13.10 4.2.7.2.686 [id number] [facility] 2022-11-04 15:30:00 2022-11-04 16:00:00 [facility] 1.2.840.114 350.1.13.10 4.2.7.2.686 [id number] [facility] 2022-11-04 15:30:00 2022-11-04 15:30:00 Outpatient R HEAVENLY HOWE [facility] [id number] [facility] 2022-11-04 00:00:00 2022-11-04 00:00:00 Orders Only Doctor Unassigned, [place] [facility] 1.2840.114 350.1.13.10 4.2.7.2.686 [id number] [facility] 2022-10-20 07:24:00 2022-10-20 12:52:00 [facility] [id number] [facility] 2022-10-20 07:24:00 2022-10-20 12:52:00 Hospital Encounter Heavenly Howe [facility] 1.2.840.114 350.1.13.10 4.2.7.2.686 [id number] [facility] 2022-10-20 08:45:00 2022-10-20 10:50:00 Surgery ShyamHeavenly [facility] 1.2.840.114 350.1.13.10 4.2.7.2.686 [id number] [facility] 2022-10-20 00:00:00 2022-10-20 00:00:00 Orders Only Doctor Unassigned, [place] [facility] 1.2.840.114 350.1.13.10 4.2.7.2.686 [id number] [facility] 2022-10-19 08:00:00 2022-10-19 08:00:00 Outpatient R HEAVENLY [facility]E [facility] [id number] [facility] 2022-10-17 16:30:00 2022-10-17 17:00:00 [facility] 1.2.840.114 350.1.13.10 4.2.7.2.686 [id number] [facility] 2022-10-17 16:30:00 2022-10-17 16:30:00 Outpatient R HEAVENLY HOWE [facility] [id number] [facility] 2022-10-10 00:00:00 2022-10-10 00:00:00 Refill Heavenly Howe [facility] 1.2.840.114 350.1.13.10 4.2.7.2.686 [id number] [facility] 2022-10-06 13:15:00 2022-10-06 13:30:00 General Technician Visit 2, Adc Lab Heavenly Howe [facility] 1.2840.114 350.1.13.10 4.2.7.2.686 [id number] [facility] 2022-10-06 13:15:00 2022-10-06 13:15:00 [facility] [id number] [facility] 2022-10-05 09:00:00 2022-10-05 10:02:31 [facility] [id number] [facility] 2022-10-05 00:00:00 2022-10-05 00:00:00 Orders Only Doctor Unassigned, [place] [facility] 1.2840.114 350.1.13.10 4.2.7.2.686 [id number] [facility] 2022-10-05 00:00:00 2022-10-05 00:00:00 [facility] 1.2840.114 350.1.13.10 4.2.7.2.686 [id number] [facility] 2022-09-26 09:00:00 2022-09-26 09:44:09 Outpatient R NED [facility]CUA [facility] [id number] [facility] 2022-09-26 09:00:00 2022-09-26 09:44:09 Office Visit Ned Amezcua [facility] 1.0.114 350.1.13.10 4.2.7.2.686 [id number] [facility] 2022-09-20 00:00:00 2022-09-20 00:00:00 Pre Visit Outreach Ute Emmanuel 1.2840.114 350.1.13.10 4.2.7.2.686 [id number] [facility] 2021-12-02 00:00:00 2021-12-02 00:00:00 Telephone Sandip Villegas [facility] 1..114 350.1.13.10 4.2.7.2.686 [id number] [facility] 2021-10-25 10:30:00 2021-10-25 10:30:00 Outpatient R [facility] [id number] [facility] 2021-10-25 10:30:00 2021-10-25 10:30:00 Outpatient R [facility] [id number] [facility] 2021-10-20 00:00:00 2021-10-20 00:00:00 Refill Bakari Sandip [facility] 1..114 350.1.13.10 4.2.7.2.686 [id number] [facility] 2021-09-23 09:00:00 2021-09-23 09:53:46 Outpatient R [facility] [id number] [facility] 2021-09-23 09:00:00 2021-09-23 09:53:46 Outpatient R [facility] [id number] [facility] 2021-09-23 09:00:00 2021-09-23 09:53:46 Office Visit Sandip Villegas [facility] 1..114 350.1.13.10 4.2.7.2.686 [id number] [facility] 2021-09-23 00:00:00 2021-09-23 00:00:00 Orders Only Doctor Unassigned, [place] [facility] 1..114 350.1.13.10 4.2.7.2.686 [id number] [facility] 2021-09-09 00:00:00 2021-09-09 00:00:00 Case Management Raquel Desai 1.2.840.114 350.1.13.10 4.2.7.2.686 [id number] [facility] 2021-08-24 00:00:00 2021-08-24 00:00:00 Case Management Raquel Desai 1.2840.114 350.1.13.10 4.2.7.2.686 [id number] [facility] 2021-02-10 00:00:00 2021-02-10 00:00:00 Orders Only Doctor Unassigned, [place] [facility] 1.2840.114 350.1.13.10 4.2.7.2.686 [id number] [facility] 2020-11-24 00:00:00 2020-11-24 00:00:00 Patient Outreach Slava Henry [facility] 1.20.114 350.1.13.10 4.2.7.2.686 [id number] [facility] 2020-09-17 08:30:00 2020-09-17 08:30:00 Outpatient [facility] [id number] [facility] Results Test Description Test Time Test Comments Results Result Co [facility]ments [facility] SPECIFIC [id number] 20:51:00* Test Item Value Reference Range Interpretation Comme nts POCT PH U (test code = 3254) 7 mg/dl 5-8 POCT U LEUK EST (test code = 3263) negative Negative - Negative POCT U NIT (test code = 3262) negative Negative - Negati ve POCT U PROT (test code = 3259) negative Negative - Negat isaias POCT U GLU (test code = 3256) normal Negative - Negati ve POCT U KETONE (test code = 3258) negative Negative - Neg ative POCT U BLD (test code = 3257) negative Negative - Negati ve [facility] URINALYSIS W/O SPECIFIC [id number] 21:44:00* Test Item Value Reference Range Interpretation Comme nts POCT PH U (test code = 3254) 7 mg/dl 5-8 POCT U LEUK EST (test code = 3263) ++ Negative - Negative POCT U NIT (test code = 3262) negative Negative - Negative POCT U PROT (test code = 3259) negative Negative - Negative POCT U GLU (test code = 3256) negative Negative - Negative POCT U KETONE (test code = 3258) negative Negative - Negative POCT U BLD (test code = 3257) trace Negative - Negative EZIO (test code = EZIO) Per order PVR by bladder scan = ?0 ml. Results reported to provider. [facility] URINALYSIS W/O SPECIFIC [id number] 21:44:00* Test Item Value Reference Range Interpretation Comme nts POCT PH U (test code = 3254) 7 mg/dl 5-8 POCT U LEUK EST (test code = 3263) ++ Negative - Negative POCT U NIT (test code = 3262) negative Negative - Negative POCT U PROT (test code = 3259) negative Negative - Negative POCT U GLU (test code = 3256) negative Negative - Negative POCT U KETONE (test code = 3258) negative Negative - Negative POCT U BLD (test code = 3257) trace Negative - Negative EZIO (test code = EZIO) Per order PVR by bladder scan = ?0 ml. Results reported to provider. [facility] URINALYSIS W/O SPECIFIC [id number] 15:24:00* Test Item Value Reference Range Interpretation Comme nts POCT PH U (test code = 3254) 5 mg/dl 5-8 POCT U LEUK EST (test code = 3263) negative Negative - Negative POCT U NIT (test code = 3262) negative Negative - Negati ve POCT U PROT (test code = 3259) negative Negative - Negat isaias POCT U GLU (test code = 3256) negative Negative - Negati ve POCT U KETONE (test code = 3258) negative Negative - Neg ative POCT U BLD (test code = 3257) negative Negative - Negati ve [facility]
[2023-09-18] MEDS ORDERED: NA CHLORIDE 0.9% 500 ML ONE (10:49)
[2023-09-18 10:52] LABS: Absolute Lymphocytes (CBC) 0.4 K/uL (0.7-4.9); Hematocrit 44.1 % (36.0-45.0); Lymphocytes % 2.6 % (15.3-44.8); MCV 84.8 fL (80-100); MPV 9.4 fL (7.6-11.3); Platelets 152 thou/uL (152-406)
[2023-09-18 11:19] LABS: SARS-CoV-2 Antigen Rapid Res Negative (Negative)
--- NOTE | 2023-09-18 11:37 | RAD REPORT ---
EXAM DESCRIPTION: RAD - Chest Pa And Lat (2 Views) - 09/18/2023 11:28 am CLINICAL HISTORY: COUGH COMPARISON: No comparisons TECHNIQUE: PA and lateral views of the chest were obtained. FINDINGS: The lungs are clear. Heart size is normal and central vasculature is within normal limits. No pleural effusion or pneumothorax seen. No acute bony finding noted. IMPRESSION: No acute cardiopulmonary process.
--- NOTE | 2023-09-18 11:39 | RAD REPORT ---
EXAM DESCRIPTION: US - Extrem Venous W Compress Jason - 09/18/2023 11:28 am CLINICAL HISTORY: Pain COMPARISON: None. TECHNIQUE: Real-time sonographic evaluation of the bilateral lower extremity deep venous systems was performed. FINDINGS: Normal compressibility, flow augmentation, phasic flow and spontaneous flow is identified in both the left and right lower extremity deep venous systems. No intraluminal filling defects seen. IMPRESSION: No evidence of DVT in either lower extremity.
[2023-09-18 11:48] LABS: Blood Morphology Comment NOT SEEN (NOT SEEN); Platelet Estimate ADEQ; White Blood Cell Scan OK (OK)
[2023-09-18 12:29] LABS: ALT/SGPT 85 U/L (13-56); AST/SGOT 36 U/L (15-37); Alkaline Phosphatase 112 U/L (45-117); BUN Blood Urea Nitrogen 15 mg/dL (7-18); Bilirubin Total 0.8 mg/dL (0.2-1.0); Glomerular Filtration Rate 67 ml/min (=/>90); Glucose Level 362 mg/dL (74-106); Lipase 20 U/L (13-75); NT PRO-BNP 1494 pg/mL (<125); Protein, Total 5.2 g/dL (6.4-8.2); Sodium Level 132 mEq/L (136-145); Troponin High Sensitivity 243.9 pg/mL (<58.9)
[2023-09-18 12:31] LABS: Bicarbonate > 45 mEq/L (21-32); Potassium 1.4 mEq/L (3.5-5.1)
[2023-09-18] MEDS ORDERED: POTASSIUM 25 MEQ EFFERV TAB ONE (12:57)
[2023-09-18] MEDS ORDERED: NS KCL 20MEQ 1,000 ML IV ONE (12:57)
[2023-09-18] MEDS ORDERED: KCL 20 MEQ/100 mL IVPB 200 ML IV ONE (12:58)
[2023-09-18] MEDS ORDERED: ASPIRIN 81 MG CHEWABLE TABLET ONE (13:16)
[2023-09-18] MEDS ORDERED: FAMOTIDINE 20 MG/2 ML VIAL IV ONE (13:16)
--- NOTE | 2023-09-18 13:20 | EDPHYS ---
Physician Documentation [facility] Name: Kat Munoz Age: 68 yrs Sex: Female : 1955 Arrival Date: 09/18/2023 Time: 10:10 Bed 2 Private MD: ABIMAEL Physician Wilbur Moore HPI: 09/18 11:08 This 68 yrs old Female presents to ER via Wheelchair with complaints of Feet ganga Swelling, Sore Throat, Doesn't Feel Right. 11:08 The patient presents with sore throat. The patient describes throat pain as burning, ganga constant. Onset: The symptoms/episode began/occurred 2 day(s) ago. Severity of symptoms: At their worst the symptoms were mild. Associated signs and symptoms: Pertinent positives: chills, flu-like symptoms. Historical: - Allergies: 10:22 No Known Allergies; ph - PMHx: 10:22 Hypothyroidism; aa5 - PSHx: 10:22 Cholecystectomy; Urethra sx; aa5 - Immunization history:: Adult Immunizations unknown. - Social history:: Smoking status: Patient denies any tobacco usage or history of. ROS: 11:09 Constitutional: Negative for fever, chills, and weight loss, Eyes: Negative for injury, ganga pain, redness, and discharge, Neck: Negative for injury, pain, and swelling, Cardiovascular: Negative for chest pain, palpitations, and edema, Respiratory: Negative for shortness of breath, cough, wheezing, and pleuritic chest pain, Abdomen/GI: Negative for abdominal pain, nausea, vomiting, diarrhea, and constipation, Back: Negative for injury and pain, : Negative for injury, bleeding, discharge, and swelling, MS/Extremity: Negative for injury and deformity, Skin: Negative for injury, rash, and discoloration, Neuro: Negative for headache, weakness, numbness, tingling, and seizure, Psych: Negative for depression, anxiety, suicide ideation, homicidal ideation, and hallucinations, Allergy/Immunology: Negative for hives, rash, and allergies, Endocrine: Negative for neck swelling, polydipsia, polyuria, polyphagia, and marked weight changes, 11:09 ENT: Positive for rhinorrhea, sinus pain, sore throat, 11:09 MS/extremity: Positive for swelling, tenderness, of the right leg and left leg, Exam: 11:09 Constitutional: This is a well developed, well nourished patient who is awake, alert, gnaga and in no acute distress. Head/Face: Normocephalic, atraumatic. Eyes: Pupils equal round and reactive to light, extra-ocular motions intact. Lids and lashes normal. Conjunctiva and sclera are non-icteric and not injected. Cornea within normal limits. Periorbital areas with no swelling, redness, or edema. Neck: Trachea midline, no thyromegaly or masses palpated, and no cervical lymphadenopathy. Supple, full range of motion without nuchal rigidity, or vertebral point tenderness. No Meningismus. Chest/axilla: Normal chest wall appearance and motion. Nontender with no deformity. No lesions are appreciated. Cardiovascular: Regular rate and rhythm with a normal S1 and S2. No gallops, murmurs, or rubs. Normal PMI, no JVD. No pulse deficits. Respiratory: Lungs have equal breath sounds bilaterally, clear to auscultation and percussion. No rales, rhonchi or wheezes noted. No increased work of breathing, no retractions or nasal flaring. Abdomen/GI: Soft, non-tender, with normal bowel sounds. No distension or tympany. No guarding or rebound. No evidence of tenderness throughout. Back: No spinal tenderness. No costovertebral tenderness. Full range of motion. Female : Normal external genitalia. Skin: Warm, dry with normal turgor. Normal color with no rashes, no lesions, and no evidence of cellulitis. Neuro: Awake and alert, GCS 15, oriented to person, place, time, and situation. Cranial nerves II-XII grossly intact. Motor strength 5/5 in all extremities. Sensory grossly intact. Cerebellar exam normal. Normal gait. Psych: Awake, alert, with orientation to person, place and time. Behavior, mood, and affect are within normal limits. 11:09 ENT: Posterior pharynx: Tonsils: bilaterally enlarged, with erythema, with exudate, Uvula: normal, midline, edematous, erythema, swelling, that is mild, erythema, that is mild, exudate, that is mild, peritonsillar mass, is not appreciated, 11:09 ECG was reviewed by the Attending Physician. 11:09 Musculoskeletal/extremity: ROM: no acute changes, intact in all extremities, full active range of motion, Circulation is intact in all extremities. Pulses: Sensation intact. Weight bearing: able to fully bear weight, without difficulty, DVT Exam: negative Homans' sign noted on exam, no appreciated bluish discoloration, no erythema, no increased warmth, pain, swelling, tenderness, Vital Signs: 10:22 BP 136 / 71; Pulse 79; Resp 16 S; Temp 98.6(O); Pulse Ox 96% on R/A; Weight 74.84 kg aa5 (R); Height 5 ft. 4 in. (R); 14:51 BP 125 / 77; Pulse 83; Resp 13; Pulse Ox 96% on 2 lpm NC; Pain 0/10; tl4 16:07 BP 112 / 73; Pulse 71; Resp 15; Pulse Ox 99% ; ko1 10:22 Body Mass Index 28.32 (74.84 kg, 162.56 cm) aa5 14:51 Pain Scale: Adult tl4 Yakov Coma Score: 14:51 Eye Response: spontaneous(4). Motor Response: obeys commands(6). Verbal Response: tl4 oriented(5). Total: 15. MDM: 10:16 Patient medically screened. ganga 11:12 Differential diagnosis: cocksackie virus, echovirus infection, epiglottitis, ganga gingivostomatitis, group A strep tonsillitis, influenza, laryngitis, mononucleosis, peritonsillar abscess chlamydia pharyngitis, pharyngitis, tonsillitis, upper respiratory infection, uvulitis, viral syndrome. Data reviewed: vital signs, nurses notes, lab test result(s), EKG, radiologic studies, doppler, plain films. Consideration of Admission/Observation Escalation of care including admission/observation considered. I considered the following discharge prescriptions or medication management in the emergency department Medications were administered in the Emergency Department. See MAR. Independent interpretation of the following test(s) in the Emergency Department EKG: See my EKG interpretation above. Test considered but Not performed: Ultrasound no abd usg. Historians other than the Patient: pt well informed. Care significantly affected by the following chronic conditions: hypothyroid. Counseling: I had a detailed discussion with the patient and/or guardian regarding the historical points, exam findings, and any diagnostic results supporting the discharge/admit diagnosis, lab results, radiology results. 09/18 10:24 Order name: SARS RAPID; Complete Time: 11:29 [facility] 09/18 10:24 Order name: Flu; Complete Time: 11:29 ganga 09/18 10:24 Order name: Strep [facility] 09/18 10:24 Order name: CBC with Diff; Complete Time: 12:34 [facility] 09/18 10:24 Order name: Comprehensive Metabolic Panel; Complete Time: 12:34 [facility] 09/18 10:24 Order name: Lipase; Complete Time: 12:34 [facility] 09/18 10:24 Order name: Urinalysis w/ reflexes [facility] 09/18 10:24 Order name: Troponin HS; Complete Time: 12:34 [facility] 09/18 10:24 Order name: BNP; Complete Time: 12:34 [facility] 09/18 10:55 Order name: Blood Culture Adult (2) [facility] 09/18 10:55 Order name: Lactate w/ 2H reflex if indic.; Complete Time: 11:29 [facility] 09/18 11:15 Order name: Throat Culture [facility] 09/18 11:48 Order name: CBC Smear Scan; Complete Time: 12:34 [facility] 09/18 12:34 Order name: Phosphorus; Complete Time: 14:05 [facility] 09/18 12:35 Order name: ABG [facility] 09/18 13:05 Order name: Magnesium; Complete Time: 14:05 [facility] 09/18 13:07 Order name: TSH; Complete Time: 14:05 [facility] 09/18 13:07 Order name: PT-INR [facility] 09/18 13:25 Order name: ABG Arterial Blood Gas; Complete Time: 14:05 [facility] 09/18 14:39 Order name: Basic Metabolic Panel [facility] 09/18 14:39 Order name: Basic Metabolic Panel [facility] 09/18 14:39 Order name: Basic Metabolic Panel [facility] 09/18 14:39 Order name: Basic Metabolic Panel [facility] 09/18 14:39 Order name: Basic Metabolic Panel EDMS 09/18 14:39 Order name: Basic Metabolic Panel ED[facility] 09/18 14:39 Order name: Basic Metabolic Panel EDMS 09/18 14:39 Order name: Basic Metabolic Panel EDMS 09/18 14:39 Order name: CBC with Automated Diff [facility] 09/18 14:39 Order name: CBC with Automated Diff [facility] 09/18 14:39 Order name: CBC with Automated Diff [facility] 09/18 14:39 Order name: CBC with Automated Diff [facility] 09/18 14:39 Order name: CBC with Automated Diff [facility] 09/18 14:39 Order name: CBC with Automated Diff [facility] 09/18 14:39 Order name: CBC with Automated Diff [facility] 09/18 14:39 Order name: CBC with Automated Diff [facility] 09/18 14:39 Order name: Magnesium [facility]MS 09/18 14:39 Order name: Magnesium EDMS 09/18 14:39 Order name: Magnesium EDMS 09/18 14:39 Order name: Magnesium EDMS 09/18 14:39 Order name: Magnesium EDMS 09/18 14:39 Order name: Magnesium EDMS 09/18 14:39 Order name: Magnesium EDMS 09/18 14:39 Order name: Magnesium EDMS 09/18 14:39 Order name: Phosphorus EDMS 09/18 14:39 Order name: Phosphorus EDMS 09/18 14:39 Order name: Phosphorus EDMS 09/18 14:39 Order name: Phosphorus EDMS 09/18 14:39 Order name: Phosphorus EDMS 09/18 14:39 Order name: Phosphorus EDMS 09/18 14:39 Order name: Phosphorus EDMS 09/18 14:39 Order name: Phosphorus EDMS 09/18 14:39 Order name: Troponin High Sensitivity [facility] 09/18 14:39 Order name: Troponin High Sensitivity [facility] 09/18 14:39 Order name: Troponin High Sensitivity [facility] 09/18 10:24 Order name: Chest Pa And Lat (2 Views) XRAY; Complete Time: 12:34 [facility] 09/18 10:53 Order name: US Extremity Venous W Compression Jason; Complete Time: 12:34 [facility] 09/18 10:24 Order name: EKG; Complete Time: 10:25 [facility] 09/18 14:39 Order name: CONS Physician Consult EDMS 09/18 10:24 Order name: EKG - Nurse/Tech; Complete Time: 10:56 [facility] 09/18 11:40 Order name: Labs - recollect needed: recollect lavender and green top; Complete Time: bd :09/18 12:34 Order name: IV Saline Lock - Large Bore; Complete Time: 13:35 [facility] EC:09 Rate is 105 beats/min. Rhythm is regular. QRS [place] is Normal. [place] interval is normal. [facility] QRS interval is normal. QT interval is prolonged at 631 msec. No Q waves. T waves are Normal. No ST changes noted. Clinical impression: NSR w/ Non-specific ST/T Changes and No evidence of ischemia. Interpreted by me. Reviewed by me. Administered Medications: 10:25 CANCELLED (Duplicate Order): ns 0.9% 1000 ml IV at 125 ml/hr continuous ganga 10:53 Drug: NS 0.9% IV 500 ml IV at bolus once Route: IV; Rate: bolus; Site: right ph antecubital; 15:18 Follow up: Response: No adverse reaction; IV Status: Completed infusion; IV Intake: tl4 500ml 13:00 Drug: Potassium PO Effervescent Tablet 50 mEq PO once; dissolve in 4 ounces of water or aa5 juice Route: PO; 14:31 Follow up: Response: No adverse reaction tl4 13:00 Drug: Potassium Chloride IV 20 mEq IV at per protocol once; administer over 1-2 hours aa5 Route: IV; Rate: per protocol; Site: right antecubital; 13:00 Drug: Potassium Chloride IV 20 mEq IV at per protocol once; administer over 1-2 hours aa5 Route: IV; Rate: per protocol; Site: right antecubital; 13:05 Not Given (Duplicate Order): ns 0.9% with kcl20 meq/l 1000 ml IV at 125 ml/hr continuouscha 13:26 Drug: Famotidine IVP 20 mg IVP once; dilute with 10 mL 0.9% NaCl; give over 2 minutes ph Route: IVP; Site: right hand; 15:16 Follow up: Response: No adverse reaction tl4 13:27 Drug: Aspirin PO Chewable Tablet 81 mg PO once Route: PO; ph 15:17 Follow up: Response: No adverse reaction tl4 14:07 Drug: Lactated Ringers Solution IV 1000 ml IV at 125 ml/hr continuous; add 20 meq kcl ph to this liter of LR Route: IV; Rate: 125 ml/hr; Site: right antecubital; 14:30 Drug: Rocephin IV 1 grams IV at per protocol once; Given slow IV push per pharmacy ph instructions Route: IV; Rate: per protocol; Site: right hand; 15:17 Follow up: Response: No adverse reaction; IV Status: Completed infusion tl4 Disposition Summary: 09/18/23 13:20 Hospitalization Ordered Notes: Hospitalization Status: Inpatient Admission ganga Provider: Kalia Sousa cha Location: Telemetry/MedSurg (Inpatient) ganga Condition: Fair ganga Problem: new ganga Symptoms: are unchanged ganga Bed/Room Type: Standard [facility] Room Assignment: 407(09/18/23 14:49) bd Diagnosis - Hypokalemia ganga - Weakness ganga - Acute pharyngitis due to other specified organism ganga - Hyperglycemia, unspecified ganga - Type 2 diabetes mellitus with hyperglycemia ganga - Abnormal electrocardiogram [ECG] [EKG] - PROLONGED QT ganga - Non ST elevation IA ganga - Edema, unspecified ganga Forms: - Medication Reconciliation Form ganga - SBAR form ganga - Leadership Thank You Letter ganga Signatures: Dispatcher [employer] EDJacy Demarco Corey, MD MD cha Calderon, Audri RN RN aa5 Mohini Santacruz RN RN Juliendeangelo, Jose 4 Corrections: (The following items were deleted from the chart) 10:25 10:24 NS 0.9% IV 1000 ml IV at 125 ml/hr continuous ordered. ganga [facility] 14:49 13:20 ganga bd
--- NOTE | 2023-09-18 13:20 | ER ---
Nurse's Notes [facility] Name: Kat Munoz Age: 68 yrs Sex: Female : 1955 Arrival Date: 09/18/2023 Time: 10:10 Bed 2 Private MD: Diagnosis: Hypokalemia;Weakness;Acute pharyngitis due to other specified organism;Hyperglycemia, unspecified;Type 2 diabetes mellitus with hyperglycemia;Abnormal electrocardiogram [ECG] [EKG]-PROLONGED QT;Non ST elevation MS;Edema, unspecified Presentation: 09/18 10:22 Chief complaint: Patient states: lower leg swelling that began 1 week ago. Pt also aa5 reports sore throat, throat pressure, sinus pressure, dizziness, and weakness. 10:22 Coronavirus screen: sore throat. Ebola Screen: Patient denies travel to an [facility] Ebola-affected area in the 21 days before illness onset. Initial Sepsis Screen: Does the patient meet any 2 criteria? No. Patient's initial sepsis screen is negative. Does the patient have a suspected source of infection? No. Patient's initial sepsis screen is negative. Risk Assessment: Do you want to hurt yourself or someone else? Patient reports no desire to harm self or others. Onset of symptoms was September 2023. 10:22 Acuity: JOSE 3 aa5 10:22 Method Of Arrival: Wheelchair aa5 Historical: - Allergies: 10:22 No Known Allergies; ph - PMHx: 10:22 Hypothyroidism; aa5 - PSHx: 10:22 Cholecystectomy; Urethra sx; aa5 - Immunization history:: Adult Immunizations unknown. - Social history:: Smoking status: Patient denies any tobacco usage or history of. Screenin:55 [facility] ED Fall Risk Assessment (Adult) History of falling in the last 3 months, ph including since admission No falls in past 3 months (0 pts) Confusion or Disorientation No (0 pts) Intoxicated or Sedated No (0 pts) Impaired Gait No (0 pts) Mobility Assist Device Used Yes (1 pt) Altered Elimination No (0 pt) Score/Fall Risk Level 0 - 2 = Low Risk Oriented to surroundings, Maintained a safe environment, Provided non-skid footwear, Hourly rounding (assess needs \T\ fall precautionary measures) done. Abuse screen: Denies threats or abuse. Denies injuries from another. Nutritional screening: No deficits noted. Tuberculosis screening: No symptoms or risk factors identified. Assessment: 10:54 General: Appears in no apparent distress. Behavior is calm, cooperative, appropriate ph for age. Pain: Complains of pain in throat. Neuro: Level of Consciousness is awake, alert, obeys commands, Oriented to person, place, time, situation. Cardiovascular: Capillary refill < 3 seconds in bilateral fingers Patient's skin is warm and dry. Respiratory: Airway is patent Respiratory effort is even, unlabored, Respiratory pattern is regular, symmetrical, Breath sounds are clear bilaterally. GI: No signs and/or symptoms were reported involving the gastrointestinal system. EENT: Throat is reddened has patchy exudate. Derm: Skin is pink, warm \T\ dry. 10:55 Cardiovascular: Edema is 2+ to left midcalf, left ankle, left foot, right midcalf, ph right ankle and right foot pitting to left foot and right foot. 14:53 Reassessment: No changes from previously documented assessment. Patient and/or family tl4 updated on plan of care and expected duration. Pain level reassessed. Patient is alert, oriented x 3, equal unlabored respirations, skin warm/dry/pink. Patient denies pain at this time. Vital Signs: 10:22 BP 136 / 71; Pulse 79; Resp 16 S; Temp 98.6(O); Pulse Ox 96% on R/A; Weight 74.84 kg aa5 (R); Height 5 ft. 4 in. (R); 14:51 BP 125 / 77; Pulse 83; Resp 13; Pulse Ox 96% on 2 lpm NC; Pain 0/10; tl4 16:07 BP 112 / 73; Pulse 71; Resp 15; Pulse Ox 99% ; ko1 10:22 Body Mass Index 28.32 (74.84 kg, 162.56 cm) aa5 14:51 Pain Scale: Adult tl4 Vitals: 14:51 Cardiac Rhythm Assessment Regular Sinus rhythm W/PAC's. tl4 Yakov Coma Score: 14:51 Eye Response: spontaneous(4). Motor Response: obeys commands(6). Verbal Response: tl4 oriented(5). Total: 15. ED Course: 10:13 Patient arrived in ED. mg5 10:15 Wilbur Moore MD is Attending Physician. ganga 10:18 Arm band placed on. aa5 10:22 Mohini Santacruz, RN is Primary Nurse. ph 10:35 Triage completed. aa5 10:54 SARS RAPID Sent. ph 10:54 Flu Sent. ph 10:54 Strep Sent. ph 10:54 Troponin HS Sent. ph 10:54 BNP Sent. ph 10:56 Patient has correct armband on for positive identification. Placed in gown. Bed in low ph position. Call light in reach. Side rails up X2. Pulse ox on. NIBP on. 11:01 EKG done, by ED staff, reviewed by Wilbur Moore MD. em1 11:29 Chest Pa And Lat (2 Views) XRAY In Process Unspecified. EDMS 11:30 US Extremity Venous W Compression Jason In Process Unspecified. EDMS 12:33 Notified ED physician of a critical lab result(s). Potassium 1.4, CO2 >45, and Troponin aa5 243.9. 13:17 Kalia Sousa is Hospitalizing Provider. ganga 13:27 PT-INR Sent. ph 13:27 TSH Sent. ph 13:27 Magnesium Sent. ph 13:27 Phosphorus Sent. ph 14:29 PT-INR Sent. tl4 14:52 No provider procedures requiring assistance completed. tl4 14:52 Inserted saline lock: 22 gauge in right antecubital area, using aseptic technique. tl4 14:52 Inserted saline lock: 22 gauge in right hand, using aseptic technique. Blood collected. tl4 15:15 Patient admitted, IV remains in place. tl4 15:16 Provided Education on: ED process. tl4 Administered Medications: 10:25 CANCELLED (Duplicate Order): ns 0.9% 1000 ml IV at 125 ml/hr continuous ganga 10:53 Drug: NS 0.9% IV 500 ml IV at bolus once Route: IV; Rate: bolus; Site: right ph antecubital; 15:18 Follow up: Response: No adverse reaction; IV Status: Completed infusion; IV Intake: tl4 500ml 13:00 Drug: Potassium PO Effervescent Tablet 50 mEq PO once; dissolve in 4 ounces of water or aa5 juice Route: PO; 14:31 Follow up: Response: No adverse reaction tl4 13:00 Drug: Potassium Chloride IV 20 mEq IV at per protocol once; administer over 1-2 hours aa5 Route: IV; Rate: per protocol; Site: right antecubital; 13:00 Drug: Potassium Chloride IV 20 mEq IV at per protocol once; administer over 1-2 hours aa5 Route: IV; Rate: per protocol; Site: right antecubital; 13:05 Not Given (Duplicate Order): ns 0.9% with kcl20 meq/l 1000 ml IV at 125 ml/hr continuouscha 13:26 Drug: Famotidine IVP 20 mg IVP once; dilute with 10 mL 0.9% NaCl; give over 2 minutes ph Route: IVP; Site: right hand; 15:16 Follow up: Response: No adverse reaction tl4 13:27 Drug: Aspirin PO Chewable Tablet 81 mg PO once Route: PO; ph 15:17 Follow up: Response: No adverse reaction tl4 14:07 Drug: Lactated Ringers Solution IV 1000 ml IV at 125 ml/hr continuous; add 20 meq kcl ph to this liter of LR Route: IV; Rate: 125 ml/hr; Site: right antecubital; 14:30 Drug: Rocephin IV 1 grams IV at per protocol once; Given slow IV push per pharmacy ph instructions Route: IV; Rate: per protocol; Site: right hand; 15:17 Follow up: Response: No adverse reaction; IV Status: Completed infusion tl4 Medication: 10:56 VIS not applicable for this client. ph Intake: 15:18 IV: 500ml; Total: 500ml. tl4 Outcome: 13:20 Decision to Hospitalize by Provider. ganga 15:15 Admitted to Tele accompanied by tech, via stretcher, room 407, Report called to tl4 SISI Christian 15:15 Condition: stable 15:15 Instructed on the need for admit, 16:52 Patient left the ED. tl4 Signatures: Dispatcher [employer] EDID Wilbur Moore MD MD cha Martinez, Eric em1 Theresa Soliz RN RN aa5 Mohini Santacruz RN RN ph Oliver, Kathy, RN RN oneal1 Zoey Coates mg5 Jose Zhang tl4 Corrections: (The following items were deleted from the chart) 14:52 14:46 Inserted saline lock: tl4 tl4
[2023-09-18 13:23] LABS: Blood O2 Saturation 94.6 % (92-98.5)
[2023-09-18 13:24] LABS: Arterial Blood Carboxyhemoglob 1.6 % (0-1.5); Blood Gas Oxyhemoglobin 91.4 % (94-97)
[2023-09-18] MEDS ORDERED: Ringers Lactate 1,000 ML with POTASSIUM CL 20 MEQ IV SCH ×2 (14:00)
[2023-09-18] MEDS ORDERED: CEFTRIAXONE 1000 MG/VIAL ONE (14:15)
[2023-09-18] MEDS ORDERED: NA CHLORIDE 0.9% 50 ML ONE (14:15)
[2023-09-18] MEDS ORDERED: POTASSIUM PHOS IN 0.9 % NACL 15 MMOL/250 ML BAG IV ONE (14:45)
--- NOTE | 2023-09-18 14:46 | P.HP ---
Certification for Inpatient Patient admitted to: Observation With expected LOS: >2 Midnights Patient will require the following post-hospital care: None Practitioner: I am a practitioner with admitting privileges, knowledge of patient current condition, hospital course, and medical plan of care. Services: Services provided to patient in accordance with Admission requirements found in Title 42 Section 412.3 of the Code of Federal Regulations Patient History Date of Service: 09/18/23 Reason for admission: severe hypokalemia History of Present Illness: Kat Munoz is a 68 year old female with pmhx hypothyroidism who presents to the ED with c/o weakness and flu like symptoms for the last week. In an effort to feel better she tried taking theraflu with no relief. She currently has a sore throat, In the ED electrolyte imbalance was found with severe hypokalemia 1.4, hypophosphatemia 1.6, sodium 132, troponin 243, BNP 1494. Other labratory evaluation with BUN/creatinine 5/0.93, GFR 67 WBC 16, H&H 15/44, serum glucose 362. ABG: PH 7.57, PCO2 57.2, PO2 679, HCO3 52.9. She has 2+ pitting edema to BLE, and a rash on her abdomen which appeared after she started taking the theraflu. Dr. Verdugo has been consulted. Initial Vitals BP 136 / 71; Pulse 79; Resp 16 S; Temp 98.6(O); Pulse Ox 96% on R/A. US extremity venous reports "Normal compressibility, flow augmentation, phasic flow and spontaneous flow is identified in both the left and right lower extremity deep venous systems. No intraluminal filling defects seen. No evidence of DVT in either lower extremity." Chest xray reports "The lungs are clear. Heart size is normal and central vasculature is within normal limits. No pleural effusion or pneumothorax seen. No acute bony finding noted. No acute cardiopulmonary process." Kat will be admitted to hospitalist service for further evaluation and treatment of metabolic alkalosis, hypercapnia, severe hypokalemia, and hypophosphatemia. Allergies tomato Allergy (Verified 09/18/23 20:02) Hives Home Medications: Levothyroxine [Synthroid*] 1 cap PO SEECOM 10/20/13 Triamterene/Hydrochlorothiazid [Triamterene-Hctz 37.5-25 mg Cp] 1 cap PO DAILY 09/18/23 - Past Medical/Surgical History Diabetic: No -: hypothyroid -: tubal, hysterectomy - Social History Smoking Status: Never smoker Alcohol use: No CD- Drugs: No Caffeine use: Yes Review of Systems General: Weakness, Malaise Musculoskeletal: Other (2+ edema BLE) Integumentary: Rash (abdomen) Neurological: Weakness, Confusion Physical Examination - Physical Exam General: Alert, In no apparent distress, Oriented x3 HEENT: Atraumatic, Normocephalic, PERRLA Neck: Supple, 2+ carotid pulse no bruit, JVD not distended Respiratory: Clear to auscultation bilaterally, Normal air movement Cardiovascular: Normal S1 S2, No murmurs, Other (tachycardic) Gastrointestinal: Soft and benign, No tenderness, Other (obese) Musculoskeletal: Other (Edema BLE) Integumentary: Rash(es) (abdomen) Neurological: Normal speech, Normal strength at 5/5 x4 extr, Normal tone - Studies Laboratory Data (last 24 hrs) 09/18/23 09/18/23 09/18/23 13:20 13:20 11:51 WBC Hgb Hct Plt Count Sodium 132 L Potassium 1.4 L* BUN 15 Creatinine 0.93 Glucose 362 H Phosphorus 1.6 L Magnesium 2.3 Total Bilirubin 0.8 AST 36 ALT 85 H Alkaline Phosphatase 112 Lipase 20 09/18/23 10:40 WBC 16.40 H Hgb 15.3 H Hct 44.1 Plt Count 152 Sodium Potassium BUN Creatinine Glucose Phosphorus Magnesium Total Bilirubin AST ALT Alkaline Phosphatase Lipase Microbiology Data (last 24 hrs): 09/18/23 10:24 Nasopharnyx Influenza Type A Antigen Screen - Final 09/18/23 10:24 Nasopharnyx Influenza Type B Antigen Screen - Final 09/18/23 10:43 Throat Group A Streptococcus Rapid Screen - Final Assessment and Plan - Plan Assessment and plan Metabolic alkalosis Severe Hypokalemia Hypophosphatemia Hypercapnia BNP 1494, BUN/creatinine 5/0.93, CO2 >45 Potassium LR and potassium NS given in the ED k 1.4, phos 1.6 ABG: PH 7.57, PCO2 57.2, PO2 679, HCO3 52.9 replace potassium and phosphorus with gentle hydration Repeat BMP/phos Q4 hour Oxygen PRN ECHO for heart function evaluation Dr. Verdugo consulted NSTEMI Prolonged QT troponin at 243, serial trending Serial EKG pending EKG sinus tachycardia 105 Hold medications that prolong QT Hyperglycemia Serum glucose 362 A1c ordered Consistent carb diet never been diagnosed DVT PPx SCDs Lovenox Full code LOS 2 to 3 days Discharge Plan: Home Plan to discharge in: 48 Hours - Advance Directives Does patient have a Living Will: No Does patient have a Durable POA for Healthcare: No Time Spent Managing Pts Care (In Minutes): 50
[2023-09-18 18:14] VITALS: BMI 28.1
[2023-09-18 19:09] LABS: ALT/SGPT 90 U/L (13-56); AST/SGOT 34 U/L (15-37); Albumin 2.1 g/dL (3.4-5.0); Alkaline Phosphatase 111 U/L (45-117); BUN Blood Urea Nitrogen 15 mg/dL (7-18); Bicarbonate > 45 mEq/L (21-32); Bilirubin Total 0.7 mg/dL (0.2-1.0); Glomerular Filtration Rate 77 ml/min (=/>90); Glucose Level 359 mg/dL (74-106); Protein, Total 5.4 g/dL (6.4-8.2); Sodium Level 134 mEq/L (136-145)
[2023-09-18 19:10] LABS: Potassium 1.9 mEq/L (3.5-5.1)
[2023-09-18] MEDS ORDERED: POTASSIUM PHOS 30 MM in NA CHLORIDE 0.9% 500 ML IV ONE (19:15)
[2023-09-18] MEDS: NS KCL 40MEQ 40 MEQ/1,000 ML BAG IV SCH (20:00)
[2023-09-18] MEDS: POTASSIUM CL SA 10 MEQ TAB PO SCH (21:06)
--- NOTE | 2023-09-18 22:14 | RAD REPORT ---
EXAM DESCRIPTION: CT - Head Brain Wo Cont - 09/18/2023 10:08 pm CLINICAL HISTORY: Headache, eye pain Headache, drowsiness COMPARISON: <Comparisons> TECHNIQUE: All CT scans are performed using dose optimization technique as appropriate and may inclu de automated exposure control or mA/KV adjustment according to patient size. FINDINGS: No intracranial hemorrhage, hydrocephalus or extra-axial fluid collection.No areas of brai n edema or evidence of midline shift. The paranasal sinuses and mastoids are clear. The calvarium is intact. IMPRESSION: No acute intracranial abnormality.
[2023-09-18 22:23] LABS: Potassium 1.8 mEq/L (3.5-5.1)
[2023-09-19] MEDS ORDERED: POTASSIUM CL 40 MEQ in NA CHLORIDE 0.9% 500 ML IV SCH (00:30)
[2023-09-19] MEDS: KCL 20 MEQ/100 mL IVPB 20 MEQ/100 ML BAG IV SCH ×4 (01:01→08:16)
[2023-09-19] MEDS: POTASSIUM CL SA 10 MEQ TAB PO SCH (01:01)
[2023-09-19] MEDS ORDERED: NS KCL 20MEQ 1,000 ML IV ONE (03:16)
[2023-09-19] MEDS: NS KCL 40MEQ 40 MEQ/1,000 ML BAG IV SCH ×3 (06:00→20:15)
[2023-09-19 06:11] LABS: Specific Gravity 1.029 (1.005-1.030); Urine Bacteria None Seen /HPF (<20); Urine Bilirubin NEGATIVE (Negative); Urine Blood Negative (Negative); Urine Clarity Clear (Clear); Urine Color Light-Yellow (Yellow); Urine Glucose 4+ (Over) (Negative); Urine Mucus Slight /HPF (None Seen); Urine Protein 1+ (Negative); Urine RBC <5 /HPF (None Seen); Urine Urobilinogen Normal (Normal)
[2023-09-19 06:47] LABS: Absolute Lymphocytes (CBC) 0.6 K/uL (0.7-4.9); Hematocrit 39.5 % (36.0-45.0); Lymphocytes % 4.4 % (15.3-44.8); MCV 85.7 fL (80-100); MPV 9.5 fL (7.6-11.3); Platelets 136 thou/uL (152-406)
[2023-09-19 06:54] LABS: Phosphorus 1.9 mg/dL (2.5-4.9)
[2023-09-19 06:56] LABS: Potassium 2.2 mEq/L (3.5-5.1)
[2023-09-19 07:00] LABS: BUN Blood Urea Nitrogen 13 mg/dL (7-18); Bicarbonate > 45 mEq/L (21-32); Glomerular Filtration Rate 90 ml/min (=/>90); Glucose Level 339 mg/dL (74-106); Magnesium 2.2 mg/dL (1.6-2.4); Phosphorus 1.9 mg/dL (2.5-4.9); Sodium Level 137 mEq/L (136-145)
[2023-09-19 07:01] LABS: Potassium 2.1 mEq/L (3.5-5.1); Troponin High Sensitivity 129.4 pg/mL (<58.9)
[2023-09-19] MEDS ORDERED: POTASSIUM PHOS 30 MM in NA CHLORIDE 0.9% 500 ML IV ONE (09:00)
--- NOTE | 2023-09-19 12:47 | P.PN ---
Date of Service: 09/19/23 Subjective: No acute events overnight reports some intermittent blurry vision ROS: 10 point ROS as noted above, otherwise negative Physical exam GEN: Alert, oriented, NAD HEENT: Normal conjunctiva, sclera anicteric CV: Regular rate and rhythm, no edema Pulm: Nonlabored respirations on room air ABD: Soft, nontender, nondistended MSK: No joint tenderness Integumentary: No rashes Neuro: Normal speech, normal affect Vitals reviewed Problem List Metabolic alkalosis Severe Hypokalemia Hypophosphatemia Hypercapnia replace potassium and phosphorus with gentle hydration Suspect combination of triamterene/hydrochlorothiazide and polyuria from new onset diabetes mellitus/hyperglycemia contributing Additional studies ordered, nephrology consulted ECHO for heart function evaluation Hold triamterene/HCTZ Replete electrolytes, holding off on insulin given severe hypokalemia Monitor and amatory NSTEMI Prolonged QT troponin trended flat/down Serial EKG pending Hold medications that prolong QT Hyperglycemia Serum glucose 362 A1c ordered Consistent carb diet Suspect new onset diabetes mellitus type 2-A1c pending Holding off on insulin given profound hypokalemia DVT PPx Lovenox Full code LOS 2 to 3 days Discharge Plan: Home
[2023-09-19 14:18] LABS: Potassium 2.6 mEq/L (3.5-5.1)
[2023-09-19] MEDS ORDERED: POTASSIUM 25 MEQ EFFERV TAB PO ONE ×2 (15:51→20:00)
--- NOTE | 2023-09-19 16:44 | P.CNS ---
Date of Consult: 09/19/23 Reason for Consult: Hypokalemia , alkalosis Chief Complaint: severe hypokalemia History of Present Illness: A 68 year old female with pmhx hypothyroidism and HTN on Triamterene/Hydrochlorothiazid who presents to the ED with c/o weakness and blurry vision in ER labs significant for severe hypokalemia 1.4, hypophosphatemia 1.6, sodium 132, troponin 243, BNP 1494. Other labratory evaluation with BUN/creatinine 5/0.93, GFR 67 WBC 16, H&H 15/44, serum glucose 362. ABG: PH 7.57, PCO2 57.2, PO2 679, HCO3 52.9. pt also stated that she devloped skin rash ROS Head and Neck: weakness HENt, blurry vision GI: denied nausea, voimiting or diarrhea : No polyuria. No dysuria. No hematuria. 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 Respiratory: denied shortness of breath.or cough Cardiovascular: No chest pain. or leg swelling. Endocrine: No polydipsia. Skin: No rash. Neuro: Has weakness. Wobbly gait. Musculoskeletal: Generalized fatigue. Physical exam General: Awake, NAD HEENT: Atraumatic, Normocephalic Neck: Supple, no elevated JVD Respiratory: CTAB Cardiovascular: No rubs, No murmurs Gastrointestinal: Soft and benign, Non-distended Musculoskeletal: taxce edema SKi: facial rash A/ #Severe Hypokalemia denied diarrhea or vomiting possibly due to HCTZ aggressive replacement Monitor MG #Metabolic alkalosis due to hypokalemia as above avoid diamox for now cont IV #hypophospahtemia due Metabolic alkalosis replace #new onset DM SSI Total time spent 75 minutes including documentation, reviewing labs , placing orders and discussing plan of care with medical staff Allergies tomato Allergy (Verified 09/18/23 20:02) Hives Home Medications: Levothyroxine [Synthroid*] 1 cap PO SEECOM 10/20/13 Triamterene/Hydrochlorothiazid [Triamterene-Hctz 37.5-25 mg Cp] 1 cap PO DAILY 09/18/23 - Past Medical/Surgical History Diabetic: No -: hypothyroid -: tubal, hysterectomy -: Cholecystectomy - Social History Smoking Status: Never smoker Alcohol use: No CD- Drugs: No Caffeine use: Yes Place of Residence: Home Physical Examination Temp Pulse Resp BP Pulse Ox 98.8 F 83 18 154/74 H 91 09/19/23 12:00 09/19/23 12:00 09/19/23 12:00 09/19/23 12:00 09/19/23 12:00 Laboratory Data (last 24 hrs) 09/19/23 09/19/23 09/19/23 06:09 06:09 06:09 WBC 13.20 H Hgb 13.7 D Hct 39.5 Plt Count 136 L Sodium 137 Potassium 2.2 L* 2.1 L* D BUN 13 Creatinine 0.73 Glucose 339 H Phosphorus 1.9 L 1.9 L Magnesium 2.2 Total Bilirubin AST ALT Alkaline Phosphatase 09/19/23 09/18/23 09/18/23 01:28 21:14 18:10 WBC Hgb Hct Plt Count Sodium Potassium Cancelled 1.8 L* Cancelled BUN Creatinine Glucose Phosphorus Cancelled 2.0 L 1.9 L Magnesium Total Bilirubin AST ALT Alkaline Phosphatase 09/18/23 18:10 WBC Hgb Hct Plt Count Sodium 134 L Potassium 1.9 L* D BUN 15 Creatinine 0.83 Glucose 359 H Phosphorus Magnesium Total Bilirubin 0.7 AST 34 ALT 90 H Alkaline Phosphatase 111
--- NOTE | 2023-09-19 18:18 | CON ---
Date of Consultation: 09/19/2023 Reason For Consultation: Elevated troponin. History Of Present Illness: 68-year-old female, history of hypothyroidism, presented to the emergenc y room with flu-like symptoms, generalized fatigue, upper respiratory tract infection symptoms. John es having any chest pain or shortness of breath. Evaluation showed slightly elevated troponin, hence I was consulted. Past Medical History: As outlined above in the HPI. Medications: Refer to reconciliation sheet for detailed list. Allergies: NO KNOWN DRUG ALLERGIES. Family History: No premature coronary artery disease or cancer. Social History: She does not smoke or drink. Does not use any drugs. Review of Systems: All systems reviewed and they were negative except as mentioned in the HPI. Physical Examination: Vital Signs: Reviewed. Head and Neck: Pupils are equal, reactive to light. Intact eye movements. No JVD. No cervical lym phadenopathy. Neck is supple. Thyroid is not enlarged. Lungs: Clear to auscultation bilaterally. No rhonchi, wheezing, or crackles. No accessory muscle u se. Heart: Regular rate and rhythm. No extra sounds. Abdomen: Soft, nontender. Bowel sounds positive. No organomegaly. No masses or hernia. No rigidi ty or rebound. Extremities: No edema, clubbing, or cyanosis. Intact pulses. Skin: No rash or nodule. Neurologic: Alert, awake, oriented x3. No acute focal deficits appreciated. Investigations: Troponin is 129 and potassium was 2.1, now it is 2.6, magnesium was 2.2, and BUN 13, creatinine 0.73. Assessment And Recommendations: 1.Elevated troponin. No chest pain. This could be due to the viral illness. However, she will nee d ischemia evaluation. Once her condition is more stable, recommend stress test and an echo. 2.Hypokalemia, and this is being replaced. 3.Diabetes. Recommend gentle hydration and aggressive electrolyte replacement and monitor on teleme try. SR/MODL Voice ID: [id number] Report ID: [id number]
[2023-09-20] MEDS: NS KCL 40MEQ 40 MEQ/1,000 ML BAG IV SCH ×4 (04:00→21:06)
[2023-09-20 06:16] LABS: Absolute Lymphocytes (CBC) 0.5 K/uL (0.7-4.9); Hematocrit 36.9 % (36.0-45.0); Lymphocytes % 4.4 % (15.3-44.8); MCV 85.8 fL (80-100); MPV 9.1 fL (7.6-11.3); Platelets 119 thou/uL (152-406)
[2023-09-20 06:22] LABS: Magnesium 2.2 mg/dL (1.6-2.4); Phosphorus 2.2 mg/dL (2.5-4.9)
[2023-09-20 06:24] LABS: Potassium 2.6 mEq/L (3.5-5.1)
[2023-09-20] MEDS ORDERED: POTASSIUM 25 MEQ EFFERV TAB PO ONE ×4 (06:30→22:30)
[2023-09-20] MEDS: POTASS/SODIUM PHOSPHATE 1 PKT POWD.PACK PO SCH ×3 (08:25→12:53)
[2023-09-20] MEDS ORDERED: DIPHENHYDRAMINE 50 MG/ML VIAL IV ONE (09:35)
[2023-09-20] MEDS: FAMOTIDINE 20 MG/2 ML VIAL IV SCH (10:45)
[2023-09-20] MEDS: KCL 20 MEQ/100 mL IVPB 20 MEQ/100 ML BAG IV SCH ×2 (10:46→13:23)
[2023-09-20 10:58] LABS: Urine Total Volume 24 Hours 2400 mL
[2023-09-20 11:24] LABS: UR CL RANDOM 30 mmol/L (25-40)
--- NOTE | 2023-09-20 11:38 | P.PN ---
Date of Service: 09/20/23 Subjective: No acute events overnight Muscle weakness, other symptoms improving ROS: 10 point ROS as noted above, otherwise negative Physical exam GEN: Alert, oriented, NAD HEENT: Normal conjunctiva, sclera anicteric CV: Regular rate and rhythm, no edema Pulm: Nonlabored respirations on room air ABD: Soft, nontender, nondistended MSK: No joint tenderness Integumentary: No rashes Neuro: Normal speech, normal affect Vitals reviewed Problem List Metabolic alkalosis Severe Hypokalemia Hypophosphatemia Hypercapnia replace potassium and phosphorus with gentle hydration Suspect combination of triamterene/hydrochlorothiazide and polyuria from new onset diabetes mellitus/hyperglycemia contributing Additional studies ordered, nephrology consulted ECHO for heart function evaluation Hold triamterene/HCTZ Replete electrolytes, holding off on insulin given severe hypokalemia Monitor on telemetry NSTEMI Prolonged QT troponin trended flat/down Serial EKG pending Hold medications that prolong QT Cardiology recommended stress test, will optimize patient medically first Diabetes mellitus type 2-new onset with hyperglycemia A1c 8.9 Consistent carb diet Holding off on insulin given profound hypokalemia Will need antidiabetic agents at discharge DVT PPx Lovenox Full code LOS 2 to 3 days Discharge Plan: Home
--- NOTE | 2023-09-20 12:45 | PN ---
Date of Progress Note: 09/20/2023 Subjective: The patient was admitted to the hospital with severe hypokalemia. Patient apparently on trimethoprim and hydrochlorothiazide. According to the patient, patient was hospitalized before for cholecystectomy and at that time also she has severe hypokalemia. No specific workup was done. Pat ient maintained on spironolactone with trimethoprim and hydrochlorothiazide. At this time, the patie nt came complaining from weakness, found to have depletional hyponatremia. Objective: Vital Signs: Blood pressure 133/76, pulse of 87, afebrile. Chest: Clear to auscultation. Heart: S1, S2. Regular. Abdomen: Soft, nontender. Extremities: No edema. Neurologic: Alert. No focality. Laboratory Data: Hemoglobin 12.7, sodium 138, potassium 2.6, bicarb 38, BUN 11, creatinine 0.5, calc ium 6.6, phosphorus 2.2, magnesium 2.2, albumin 2.1, corrected calcium is 8.2. Current Medications: The patient on, it includes KCl and IV fluid. Assessment And Plan: 1.Hypokalemia with severe alkalosis, questionable if it is secondary to hydrochlorothiazide. Given the chronic history, I am going to go ahead and work it up for salt wasting. We will send for urine electrolyte to calculate transtubular potassium gradient and I am going to send for protein, creatini ne to evaluate if there is any Fanconi syndrome for the patient. I agree with holding hydrochlorothi azide. Continue aggressive replacement, and we will follow up the patient. After collecting the uri ne electrolyte, I am going to start the patient on Aldactone and we will follow up. 2.Hypertension. Hold hydrochlorothiazide. Start Aldactone after sending the workup. 3.Hypocalcemia. I am going to send for vitamin D and PTH and we will follow up. MAYDA/FIDELINA Voice ID: [id number] Report ID: [id number]
[2023-09-20 14:58] LABS: Potassium 2.9 mEq/L (3.5-5.1)
[2023-09-20 15:53] LABS: UR PROTEIN 35.4 mg/dL (<11.9); Urine Protein/Creatinine Ratio 1.01 ratio (<0.15)
[2023-09-20] MEDS ORDERED: KCL 20 MEQ/100 mL IVPB 20 MEQ/100 ML BAG IV SCH (23:00)
[2023-09-21 02:48] LABS: Absolute Lymphocytes (CBC) 0.6 K/uL (0.7-4.9); Hematocrit 38.1 % (36.0-45.0); Lymphocytes % 5.2 % (15.3-44.8); MCV 86.5 fL (80-100); MPV 9.1 fL (7.6-11.3); Platelets 140 thou/uL (152-406)
[2023-09-21 03:01] LABS: Magnesium 2.2 mg/dL (1.6-2.4); Phosphorus 2.1 mg/dL (2.5-4.9); Potassium 2.9 mEq/L (3.5-5.1)
[2023-09-21] MEDS ORDERED: POTASSIUM CL SA 10 MEQ TAB PO ONE (04:00)
[2023-09-21] MEDS ORDERED: KCL 20 MEQ/100 mL IVPB 20 MEQ/100 ML BAG IV SCH (04:00)
--- NOTE | 2023-09-21 06:38 | ECHO ---
HEIGHT: 5 ft 4 in WEIGHT: 164 lb 0 oz DATE OF STUDY: 09/20/[address]: Clarisse Clements NP 2-DIMENSIONAL: YES M.MODE: YES DOPPLER: YES COLOR FLOW: YES TDS: PORTABLE: YES DEFINITY: BUBBLE STUDY: DIAGNOSIS: FLUID OVERLOAD CARDIAC HISTORY: CATHERIZATION: NO SURGERY: NO PROSTHETIC VALVE: NO PACEMAKER: NO MEASUREMENTS (cm) DIASTOLIC (NORMALS) SYSTOLIC (NORMALS) IVSd 1.1 (0.6-1.2) LA Diam 2.8 (1.9-4.0) LVEF 76% LVIDd 3.8 (3.5-5.7) LVIDs 2.1 (2.0-3.5) %FS 44% LVPWd 1.2 (0.6-1.2) Ao Diam 2.5 (2.0-3.7) 2 DIMENSIONAL ASSESSMENT: RIGHT ATRIUM: NOT WELL SEEN LEFT ATRIUM: NORMAL RIGHT VENTRICLE: NOT WELL SEEN LEFT VENTRICLE: NORMAL TRICUSPID VALVE: NOT WELL SEEN MITRAL VALVE: NORMAL PULMONIC VALVE: NOT WELL SEEN AORTIC VALVE: NORMAL PERICARDIAL EFFUSION: NONE AORTIC ROOT: NORMAL LEFT VENTRICULAR WALL MOTION: NORMAL DOPPLER/COLOR FLOW: SEE BELOW COMMENTS: 1. POOR STUDY (RIGHT SIDE IS NOT SEEN WELL) 2. NORMAL LEFT VENTRICULAR EJECTION FRACTION GREATER THAN 60% (HYPERDYNAMIC) TECHNOLOGIST: LOLIS ROSE
[2023-09-21] MEDS: NS KCL 40MEQ 40 MEQ/1,000 ML BAG IV SCH (07:42)
[2023-09-21] MEDS: POTASSIUM 25 MEQ EFFERV TAB PO SCH (07:43)
[2023-09-21] MEDS: KCL 20 MEQ/100 mL IVPB 20 MEQ/100 ML BAG IV SCH ×2 (07:43→10:59)
[2023-09-21] MEDS: POTASS/SODIUM PHOSPHATE 1 PKT POWD.PACK PO SCH ×3 (07:44→10:58)
[2023-09-21] MEDS: METFORMIN ER 500 MG TAB PO SCH ×2 (07:45→16:56)
[2023-09-21] MEDS: FAMOTIDINE 20 MG/2 ML VIAL IV SCH (07:45)
[2023-09-21] MEDS ORDERED: SPIRONOLACTONE 25 MG TABLET PO SCH (09:00)
--- NOTE | 2023-09-21 11:57 | P.PN ---
Date of Service: 09/21/23 Subjective: No acute events overnight Muscle weakness, other symptoms improving Complains of anasarca ROS: 10 point ROS as noted above, otherwise negative Physical exam GEN: Alert, oriented, NAD HEENT: Normal conjunctiva, sclera anicteric CV: Regular rate and rhythm, generalized edema Pulm: Nonlabored respirations on room air ABD: Soft, nontender, nondistended MSK: No joint tenderness Integumentary: No rashes Neuro: Normal speech, normal affect Vitals reviewed Problem List Metabolic alkalosis Severe Hypokalemia Hypophosphatemia Anasarca replace potassium and phosphorus with gentle hydration Suspect combination of triamterene/hydrochlorothiazide and polyuria from new onset diabetes mellitus/hyperglycemia contributing Additional studies ordered, nephrology consulted ECHO for heart function evaluation Hold triamterene/HCTZ Replete electrolytes, holding off on insulin given severe hypokalemia Started on metformin Will start sliding scale insulin when potassium greater than 3.3 Monitor on telemetry Started on spironolactone by nephrology NSTEMI Prolonged QT troponin trended flat/down Serial EKG pending Hold medications that prolong QT Cardiology recommended stress test, will optimize patient medically first Diabetes mellitus type 2-new onset with hyperglycemia A1c 8.9 Consistent carb diet Holding off on insulin given profound hypokalemia Will need antidiabetic agents at discharge DVT PPx Lovenox Full code LOS 2 to 3 days Discharge Plan: Home <Scott Johnson - Last Filed: 09/21/23 11:55> Patient seen on rounds this morning with [facility]NA[facility] Alex reports increased swelling in legs/arms/face suspect secondary to IVF in setting of electrolyt derangement / RTA / hyperparathyroidism and hypoalbuminemia further testing is pending to evaluate hyperPTH, f/u cortisol testing nephro consulted potassium slowly improving continues to have hyperglycemia, will initiate insulin therapy once potassium >3,3 to avoid further hypokalemia <Lm Pop - Last Filed: 09/21/23 22:53>
--- NOTE | 2023-09-21 13:32 | PN ---
Date of Progress Note: 09/21/2023 Subjective: Patient was admitted to the hospital with alkalosis, severe hypokalemia. Patient's work up showed transtubular potassium gradient above 10 in spite of the supplement. Patient's urine potas sium is still elevated. Patient had salt wasting. Patient also has elevation in PTH. Her cortisol is still pending. Her aldosterone is pending. Patient was started on spironolactone yesterday. Jenny chadwick is still complaining of rash and dry mouth. Objective: Vital Signs: Blood pressure 154/76, pulse of 75, afebrile. Chest: Clear to auscultation. Heart: S1, S2. Regular. Abdomen: Soft, nontender. Extremities: No edema. Neuro: Alert. No focality. Laboratory Data: Sodium 138, potassium 2.5, bicarb 34, BUN 12, creatinine 0.6, calcium 6.7. Phospho devendra 2.1, magnesium 2.2. PTH 247. Hemoglobin 12.8. PC ratio 1.1. Urine potassium 64. Transtubular potassium gradient of 10. Assessment And Plan: 1.Hyponatremia with alkalosis, mostly secondary to renal wasting with the presence of secondary hype rparathyroidism to rule out any MEN syndrome. I am going to go ahead and send for sestamibi nuclear medicine to localize the gland. We will monitor the patient. Patient will need to be followed up [facility] for reevaluation as she has a primary hyperparathyroidism. In the mean time, I am go ing to go ahead continue aggressive supplement. We will increase spironolactone to 50. I am still w aiting for the rest of the hormonal workup including the aldosterone and the cortisol result and we w ill follow up. 2.Primary hyperparathyroidism. We will send for sestamibi nuclear medicine to localize the gland. 3.Diabetes as by Primary. 4.Alkalosis secondary to hypokalemia and hydrochlorothiazide as above. MAYDA/FIDELINA Voice ID: [id number] Report ID: [id number]
[2023-09-21 13:50] LABS: Potassium 3.7 mEq/L (3.5-5.1)
[2023-09-21] MEDS ORDERED: GLUCAGON 1 MG/VIAL IM PRN (16:15)
[2023-09-21] MEDS ORDERED: D10W 250 ML BAG IV PRN (16:15)
[2023-09-21] MEDS: INSULIN REGULAR (HUMAN) 100 UNIT/ML SQ SCH ×2 (16:56→20:42)
[2023-09-21] MEDS: INSULIN GLARGINE 100 UNIT/ML SQ SCH (20:42)
[2023-09-21] MEDS ORDERED: INSULIN GLARGINE 100 UNIT/ML SQ SCH (21:00)
[2023-09-22 00:21] LABS: C.diff Antigen/Toxin Ag neg : Tox neg (NEG : NEG)
[2023-09-22 05:17] LABS: Absolute Lymphocytes (CBC) 0.6 K/uL (0.7-4.9); Hematocrit 39.3 % (36.0-45.0); Lymphocytes % 5.4 % (15.3-44.8); MCV 86.7 fL (80-100); MPV 9.1 fL (7.6-11.3); Platelets 174 thou/uL (152-406); RBC Red Blood Cell Count 4.53 M/uL (3.86-4.86)
[2023-09-22 05:33] LABS: Albumin 1.8 g/dL (3.4-5.0); Bilirubin Total 0.5 mg/dL (0.2-1.0); Phosphorus 1.7 mg/dL (2.5-4.9); Potassium 2.7 mEq/L (3.5-5.1)
[2023-09-22 05:56] LABS: Blood Morphology Comment NOT SEEN (NOT SEEN); Platelet Estimate ADEQ
[2023-09-22] MEDS ORDERED: NA CHLORIDE 0.9% 500 ML ONE (06:25)
[2023-09-22] MEDS: KCL 20 MEQ/100 mL IVPB 20 MEQ/100 ML BAG IV SCH ×5 (06:30→23:01)
--- NOTE | 2023-09-22 07:43 | RAD REPORT ---
EXAM DESCRIPTION: Jatin Single View09/22/2023 6:20 am CLINICAL HISTORY: Shortness of breath COMPARISON: September 18 2023 FINDINGS: The lungs appear clear of acute infiltrate. The heart is normal size IMPRESSION: No acute abnormalities displayed
[2023-09-22] MEDS ORDERED: COSYNTROPIN 0.25 MG VIAL IV ONE (08:00)
[2023-09-22] MEDS: SPIRONOLACTONE 25 MG TABLET PO SCH (11:34)
[2023-09-22] MEDS: POTASS/SODIUM PHOSPHATE 1 PKT POWD.PACK PO SCH ×3 (11:34→12:46)
[2023-09-22] MEDS: METFORMIN ER 500 MG TAB PO SCH ×2 (11:34→16:17)
[2023-09-22] MEDS: POTASSIUM 25 MEQ EFFERV TAB PO SCH (11:34)
[2023-09-22] MEDS: FAMOTIDINE 20 MG/2 ML VIAL IV SCH (11:35)
--- NOTE | 2023-09-22 12:19 | P.PN ---
Subjective Date of Service: 09/22/23 Chief Complaint: severe hypokalemia Subjective: No new changes Physical Examination - Vital Signs Temperature: 97.4 F Blood Pressure: 136/78 Pulse: 60 Respirations: 17 Pulse Ox (%): 93 - Physical Exam General: Other (appears as her stated age) HEENT: Atraumatic, Normocephalic Neck: Supple Respiratory: Other (symmetric chest expansion) Cardiovascular: No rubs, No murmurs Gastrointestinal: Soft and benign Musculoskeletal: No clubbing Integumentary: No warmth Neurological: Normal tone Lymphatics: No axilla or inguinal lymphadenopathy Urinary: Other (no bladder distention) External genitalia: Deferred Rectal: Deferred Assessment And Plan - Plan # Hypokalemia, metabolic alkalosis, & hypochloriduria likely 2/2 diuretic use + post-hypercapneic state On triamterene/HCTZ at home ABG +hypercapnea +Renal K wasting w/ urine K high likely 2/2 diuretics No renal chloride wasting, urine Cl low No vomiting or diarrhea reported K repletion ongoing Cont spironolactone Encourage liberal po fluid intake # Secondary hyperPTH, suspect 2/2 vitamin D deficiency No hypercalcemia. Primary hyperPTH ruled out PseudohypoPTH is ruled out as patient has hypo-not hyperPO4 F/u 25OHD & 1,25OH2D # Hypokalemia K repletion ongoing # HypoPO4 Phos repletion prn # Anasarca 2/2 severe hypoalbuminemia BNP sig elevated at 1500 TTE on 09/20/2023 showed normal LVEF > 60% Chest CT ordered to assess for pulmo causes of elevated BNP # Hypothyroidism Levothyroxine # NSTEMI, prolonged QT Per Cardiology # DM2 Mngt per primary team
--- NOTE | 2023-09-22 12:51 | RAD REPORT ---
EXAM DESCRIPTION: NM - Parathyroid Imaging - 09/22/2023 11:00 am CLINICAL HISTORY: Primary hyperparathyroidism COMPARISON: None. TECHNIQUE: 25.1 millicuries technetium 99 MIBI administered intravenously. Immediate and 3 in a 0.5 hour delayed anterior images of the neck and upper chest obtained FINDINGS: The immediate image demonstrates normal radiotracer activity within the salivary glands an d thyroid gland. The delayed image demonstrates diminished radiotracer activity within the thyroid gland. No focal significant abnormal radiotracer activity visualized to suggest a parathyroid adenoma IMPRESSION: Unremarkable exam
[2023-09-22 16:36] LABS: Potassium 3.5 mEq/L (3.5-5.1)
--- NOTE | 2023-09-22 16:36 | P.PN ---
Date of Service: 09/22/23 Subjective: No acute events overnight Muscle weakness, other symptoms improving Complains of swelling to face, arms, legs Also c/o blurry vision ROS: 10 point ROS as noted above, otherwise negative Physical exam GEN: Alert, oriented, NAD HEENT: Normal conjunctiva, sclera anicteric CV: Regular rate and rhythm, generalized edema Pulm: Nonlabored respirations on room air ABD: Soft, nontender, nondistended MSK: No joint tenderness Integumentary: No rashes Neuro: Normal speech, normal affect Vitals reviewed Problem List Metabolic alkalosis Severe Hypokalemia Hypophosphatemia Anasarca replace potassium and phosphorus with gentle hydration Hold triamterene/HCTZ Echo with normal LVEF Cortisol >140, PTH 247.6 Parathyroid nuclear med scan WNL Aldosterone level pending, cortisol stim test performed 09/22 pending results Started on spironolactone by nephrology, increased to 50mg daily 09/22 NSTEMI Prolonged QT troponin trended flat/down Serial EKG pending Hold medications that prolong QT Cardiology recommended stress test, will optimize patient medically first Had bout of afib with rvr 09/22 that resolved spontaneously Diabetes mellitus type 2-new onset with hyperglycemia A1c 8.9 Consistent carb diet started on low dose basal insulin avoiding SSI given profound persistent hypokalemia started on metformin DVT PPx Lovenox Full code LOS 2 to 3 days Discharge Plan: Home <Scott Johnson - Last Filed: 09/22/23 16:31> Patient seen and examined on rounds this morning with 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 Ok with objects within arms length, no change in near-sight cortisol very high unclear etiology some results back, others are pending - ACTH / cortisol stim test, MRI brain uncertain if ACTH is send out. 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
[2023-09-22] MEDS ORDERED: KCL 20 MEQ/100 mL IVPB 20 MEQ/100 ML BAG IV SCH (20:00)
[2023-09-22] MEDS ORDERED: NA CHLORIDE 0.9% 250 ML ONE (21:26)
[2023-09-22] MEDS: INSULIN GLARGINE 100 UNIT/ML SQ SCH (21:28)
[2023-09-23] MEDS ORDERED: NA CHLORIDE 0.9% 100 ML ONE (02:07)
[2023-09-23] MEDS: KCL 20 MEQ/100 mL IVPB 20 MEQ/100 ML BAG IV SCH ×3 (02:10→23:47)
[2023-09-23 06:57] LABS: Lymphocytes % 8.5 % (15.3-44.8); MCV 86.4 fL (80-100); MPV 9.8 fL (7.6-11.3); Platelets 180 thou/uL (152-406); RBC Red Blood Cell Count 4.51 M/uL (3.86-4.86)
[2023-09-23 07:22] LABS: Albumin 1.7 g/dL (3.4-5.0); Bilirubin Total 0.5 mg/dL (0.2-1.0); C-Reactive Protein 2.99 mg/L (<3.00); Magnesium 1.9 mg/dL (1.6-2.4); Phosphorus 2.1 mg/dL (2.5-4.9); Potassium 2.7 mEq/L (3.5-5.1); Protein, Total 4.6 g/dL (6.4-8.2)
[2023-09-23 07:38] LABS: Thyroid Stimulating Hormone 0.565 uIU/mL (0.358-3.740)
[2023-09-23] MEDS ORDERED: ALBUMIN HUMAN 25% 200 ML IV ONE (07:56)
[2023-09-23] MEDS: FAMOTIDINE 20 MG/2 ML VIAL IV SCH (10:41)
[2023-09-23] MEDS: METFORMIN ER 500 MG TAB PO SCH ×2 (10:42→16:24)
[2023-09-23] MEDS: POTASSIUM 25 MEQ EFFERV TAB PO SCH (10:42)
[2023-09-23] MEDS: SPIRONOLACTONE 25 MG TABLET PO SCH (10:45)
--- NOTE | 2023-09-23 12:36 | P.PN ---
Date of Service: 09/23/23 Subjective: No acute events overnight Muscle weakness, other symptoms improving Complains of swelling to face, arms, legs Also c/o blurry vision ROS: 10 point ROS as noted above, otherwise negative Physical exam GEN: Alert, oriented, NAD HEENT: Normal conjunctiva, sclera anicteric CV: Regular rate and rhythm, generalized edema present Pulm: Nonlabored respirations on room air ABD: Soft, nontender, nondistended MSK: No joint tenderness Integumentary: Previous notes documented in error rash present to abdomen, blanchable, non-pruritic Neuro: Normal speech, normal affect, reports blurry vision at distance Vitals reviewed Problem List Metabolic alkalosis Severe Hypokalemia Hypophosphatemia Anasarca replace potassium and phosphorus with gentle hydration Hold triamterene/HCTZ Echo with normal LVEF Cortisol >140, PTH 247.6 Parathyroid nuclear med scan WNL Aldosterone level pending, cortisol stim test performed 09/22 pending results Started on spironolactone by nephrology, increased to 50mg daily 09/22 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, secondary hyperparathyroidism CT adrenal protocol ordered Pending MRI head as well to eval pituitary NSTEMI Prolonged QT troponin trended flat/down Serial EKG pending Hold medications that prolong QT Cardiology recommended stress test, will optimize patient medically first Had bout of afib with rvr 09/22 that resolved spontaneously Diabetes mellitus type 2-new onset with hyperglycemia A1c 8.9 Consistent carb diet started on low dose basal insulin avoiding SSI given profound persistent hypokalemia started on metformin DVT PPx Lovenox Full code LOS 2 to 3 days Discharge Plan: Home <Scott Johnson - Last Filed: 09/23/23 12:32> patient seen and examined on rounds this morning with REGISTERED NURSE BONE MARROW TRANSPLANT Alex unclear etiology, could be multifacotrial however 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
[2023-09-23] MEDS ORDERED: POTASSIUM PHOS IN 0.9 % NACL 15 MMOL/250 ML BAG IV ONE (15:09)
[2023-09-23] MEDS ORDERED: POTASSIUM CL SA 10 MEQ TAB PO ONE (15:42)
--- NOTE | 2023-09-23 16:24 | RAD REPORT ---
EXAM DESCRIPTION: CT - Abdomen Pelvis W/Wo Contrast - 09/23/2023 3:20 pm CLINICAL HISTORY: R/O adrenal tumor, ectopic acth tumor COMPARISON: Parathyroid Imaging dated 09/22/2023; Head Brain Wo Cont dated 09/18/2023 TECHNIQUE: Thin cut axial CT imaging of the abdomen and pelvis was performed before and after intrav enous administration of 100 mL Isovue 300, utilizing the adrenal mass protocol. Multiplanar reformats were generated and reviewed. All CT scans are performed using dose optimization technique as appropriate and may include automated exposure control or mA/KV adjustment according to patient size. FINDINGS: Trace layering right pleural effusion. No other suspicious findings in the lung bases. The liver, spleen, and pancreas show no suspicious findings. Bilateral diffuse adrenal thickening, wi thout focal nodules Gallbladder was surgically removed. Symmetric renal function is seen with no hydronephrosis or suspicious renal mass. No dilated bowel loops or bowel wall thickening. Nonspecific mild retroperitoneal and mesenteric root fat stranding, may relate to a degree of fluid overload. No free air or other inflammatory stranding . Mild free ascites in the perihepatic region and pelvis. Lobulated marginally enhancing collection o f fluid along the adventitia of the medial wall of the distal sigmoid colon, with a gas locule anteri paola, may suggest luminal communication. Overall, the collection measures 3.8 x 4.2 x 2.6 cm. No lazaro ia, mass or bulky lymphadenopathy. Status post hysterectomy. The urinary bladder is without significa nt finding. No suspicious bony findings. Diffuse body wall edema. IMPRESSION: Bilateral diffuse adrenal thickening, without discrete nodules. This is nonspecific and may relate to a systemic etiology. Mild free ascites and a trace layering right pleural effusion. Suggestion of distal sigmoid intramural lobulated fluid collection, may represent residua of a prior episode of diverticulitis. Other findings as above.
--- NOTE | 2023-09-23 16:51 | RAD REPORT ---
EXAM DESCRIPTION: CT - Thorax W/ Con - 09/23/2023 3:20 pm CLINICAL HISTORY: R/O TUMOR COMPARISON: Abdomen Pelvis W/Wo Contrast dated 09/23/2023 TECHNIQUE: Axial thin cut images of the chest were obtained following intravenous administration of 100 mL Isovue-300. Multiplanar reformats were generated and reviewed. All CT scans are performed using dose optimization technique as appropriate and may include automated exposure control or mA/KV adjustment according to patient size. FINDINGS: No mass or infiltrate in the lung parenchyma. Trace bilateral layering effusions. No pneum othorax. No abnormal mediastinal or hilar masses or lymphadenopathy seen. No significant aortic or pulmonary a rtery findings. Assessment is limited in the absence of IV contrast. No chest wall mass or abnormal axillary lymphadenopathy. Abdominal structures were separately evaluated on dedicated abdomen/pelvis CT of the same day. IMPRESSION: No acute process within the chest apart trace bilateral layering pleural effusions.
[2023-09-23] MEDS: INSULIN GLARGINE 100 UNIT/ML SQ SCH (20:36)
--- NOTE | 2023-09-23 20:45 | P.PN ---
Subjective Date of Service: 09/23/23 Chief Complaint: severe hypokalemia Subjective: Other (No complaints of nausea. Head watery stools today.) Physical Examination - Vital Signs Temperature: 96.9 F Blood Pressure: 139/76 Pulse: 96 Respirations: 18 Pulse Ox (%): 93 - Physical Exam General: In no apparent distress HEENT: Atraumatic, Normocephalic Neck: Supple Respiratory: Other (symmetric chest expansion) Cardiovascular: No rubs, No murmurs Gastrointestinal: Soft and benign Musculoskeletal: No clubbing Integumentary: No warmth Neurological: Normal tone Urinary: Other (no bladder distention) External genitalia: Deferred Rectal: Deferred - Studies Microbiology Data (last 24 hrs): 09/18/23 11:10 Blood - Blood Aerobic Blood Culture - Final No growth in 5 days. 09/18/23 11:10 Blood - Blood Anaerobic Blood Culture - Final No growth in 5 days. 09/18/23 11:00 Blood - Blood Aerobic Blood Culture - Final No growth in 5 days. 09/18/23 11:00 Blood - Blood Anaerobic Blood Culture - Final No growth in 5 days. Assessment And Plan - Plan # Hypokalemia, metabolic alkalosis, & hypochloriduria likely 2/2 diuretic use + post-hypercapneic state On triamterene/HCTZ at home ABG +hypercapnea +Renal K wasting w/ urine K high likely 2/2 diuretics No renal chloride wasting, urine Cl low No vomiting or diarrhea reported K repletion ongoing Cont spironolactone Encourage liberal po fluid intake # Secondary hyperPTH, suspect 2/2 vitamin D deficiency No hypercalcemia. Primary hyperPTH ruled out PseudohypoPTH is ruled out as patient has hypo-not hyperPO4 25OHD wnl F/u 1,25OH2D # Hypokalemia K repletion ongoing # HypoPO4 Phos repletion prn # Elevated serum cortisol levels Degree of cortisol elevation may still be expected d/t acute stress + uncontrolled DM Eval for / rule out Erwin's syndrome. Low-dose overnight dexamethasone suppression test ordered. 24-hour urinary free cortisol ordered (2 wk turnaround time). Overnight salivary cortisol test will require special tubes that will need to be ordered from elsewhere. Defer salivary cortisol test at this time. # Anasarca 2/2 severe hypoalbuminemia BNP sig elevated at 1500 TTE on 09/20/2023 showed normal LVEF > 60% F/u Chest CT to assess for pulmo causes of elevated BNP # Hypothyroidism Levothyroxine # NSTEMI, prolonged QT Per Cardiology # DM2 Mngt per primary team
[2023-09-23] MEDS ORDERED: NA CHLORIDE 0.9% 250 ML ONE (21:45)
[2023-09-24] MEDS ORDERED: NA CHLORIDE 0.9% 100 ML ONE ×2 (02:16→08:09)
[2023-09-24] MEDS: KCL 20 MEQ/100 mL IVPB 20 MEQ/100 ML BAG IV SCH ×4 (02:17→14:03)
[2023-09-24 06:57] LABS: Hematocrit 38.6 % (36.0-45.0); Lymphocytes % 10.1 % (15.3-44.8); MCV 86.1 fL (80-100); MPV 9.1 fL (7.6-11.3); Platelets 204 thou/uL (152-406); RBC Red Blood Cell Count 4.49 M/uL (3.86-4.86)
[2023-09-24 07:16] LABS: Magnesium 1.8 mg/dL (1.6-2.4); Phosphorus 2.1 mg/dL (2.5-4.9)
[2023-09-24 07:26] LABS: Albumin 1.8 g/dL (3.4-5.0); Bilirubin Total 0.5 mg/dL (0.2-1.0); Protein, Total 4.6 g/dL (6.4-8.2)
[2023-09-24 07:27] LABS: Potassium 2.6 mEq/L (3.5-5.1)
[2023-09-24] MEDS: FAMOTIDINE 20 MG/2 ML VIAL IV SCH (08:28)
[2023-09-24] MEDS: METFORMIN ER 500 MG TAB PO SCH ×2 (08:31→16:46)
[2023-09-24] MEDS: POTASSIUM 25 MEQ EFFERV TAB PO SCH (08:31)
[2023-09-24] MEDS: SPIRONOLACTONE 25 MG TABLET PO SCH (08:32)
--- NOTE | 2023-09-24 08:38 | P.PN ---
Date of Service: 09/24/23 Subjective: Feels ~same as yesterday no change in vision. Still with blurred vision. No dizziness denies UTI symptoms. Has urge to have BM. not painful Facial swelling improving afebrile ROS: 10 point ROS as noted above, otherwise negative Physical exam: GEN: Alert, oriented, NAD HEENT: Normal conjunctiva, sclera anicteric CV: Regular rate and rhythm, generalized edema present Pulm: Nonlabored respirations on room air, clear bilaterally ABD: Soft, nontender, nondistended Integumentary: abdominal erythema, blanchable, non-pruritic Neuro: Normal speech, normal affect, PERRL, EOMI, vision nieves intact Vitals reviewed Problem List: Elevated Cortisol; severe Metabolic alkalosis Severe Hypokalemia Hypophosphatemia Anasarca NSTEMI Prolonged QT ?Tachyarrhythmia Severe hyperglycemia; uncontrolled Elevated Cortisol; severe severely elevated cortisol, 2am: >140ug/dl, and 8am: 99 ug/dl >5-6 times upper limit of normal per our labs reference range (09/24) I called lab and confirmed the correct units of ug/dl highly suspicious for frances's syndrome; severe episode, bordering "crisis". 09/24 consulted pulm/critical care - Dr. Dahl to [facility] as patient may need more rapid lowering of serum cortisol / transfer for endocrine glc in 300s in hospital; states recent bloodwork was all "normal" ~2 months ago by PCP A1c: 8.9; which avg glc would be ~210-220; however now >300s could lead to hypokalemia, could explain hypocalcemia, which in term cause her secondary hyperparathyroidism; leading to her significant electrolyte derangements; dry mouth given significant elevation of her 2am and 8 am cortisol levels, electrolyte derangements, intermittent tachycardia and LFTs, coupled with slow results, CT chest/abd/pelvis performed 09/23 CT to eval adrenals and commons locations for ectopic ACTH tumor; negative for any tumor; noted nospecific adrenal thickening. does not r/o other causes/locations of ACTH secreting tumor patient has never had colonoscopy MRI to eval for pituitary microadenoma tomorrow; CT negative for macroadenoma on admission radiology cancelled monday test due to partahyroid nuc med scan and uncertainty of safety of doing both; so MRI delayed until 09/25 Pt denies exogenous steroid use. Does use transdermal /vaginal estradiol - which has been shown NOT to affect serum cortisol levels, unlike oral /systemic estrogen replacement discussed with nephrology, dexamethasone low dose suppression test ordered - unable to be done over weekend so will be done tonight unable to get salivary cortisol testing done here ACTH still pending for several days differential would also include possibly from stress/acute illness; possible uncontrolled DM - however uncertain if this would lead to this degree of elevation CT chest (09/23): trace b/l layering pleural effusions CT abd/pelvis (09/23): b/l diffuse adrenal thickening without nodules. Mild free ascites and trace layering pleural effusion. Distal sigmoid intramural lobulated fluid collection - possible residua of prior diverticulitis episode General surgery consulted 09/23 given mass/fluid collection seen on CT. Dr. Avila suspects secondary to recent sling surgery last year. no surgical intervention at this time. Recommends repeat CT in 4-6 months to monitor for worsening. Also advised to get outpatient colonoscopy in near future Metabolic alkalosis Severe Hypokalemia Hypophosphatemia Anasarca Nephrology consulted -suspects this is secondary to diuretic use + posthypercapnic state Hold triamterene/HCTZ PTH 247.6 Parathyroid nuclear med scan (09/22): WNL Nephrology is following, increased spironolactone to 50mg daily 09/22 Aldosterone level pending, cortisol stim test performed 09/22 pending final results / ACTH NSTEMI Prolonged QT ?Tachyarrhythmia troponins mildly elevated trended flat Echo (09/20): 76% EF. Poor study Prolonged Qtc interval 631 09/18. 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 Severe hyperglycemia; uncontrolled Denies history of diabetes - reports "normal" routine blood work at PCP's office just 2-3 months ago. this would be sudden, new onset if true A1c does not fit with current glucose levels as noted above, and patient's report of better levels just 2-3 months ago raising further suspicion of frances syndrome started metformin 09/21 due to hyperglycemia / inability to give insulin to further worsening hypokalemia started low dose basal insulin to lower glc slightly and avoid hypokalemia - titrate as tolerated Consistent carb diet avoiding SSI given profound persistent hypokalemia VTE: Lovenox Code: Full Dispo: awaiting further results in next 24hrs
[2023-09-24] MEDS ORDERED: DOCUSATE NA 100 MG CAP PO SCH (09:00)
--- NOTE | 2023-09-24 11:14 | CON ---
Date of Consultation: 09/23/2023 Reason For Consultation: Mass or fluid collection next to the colon, seen incidentally on a CAT scan of the abdomen and pelvis. History Of Present Illness: The patient is a 68-year-old female who has a high cortisol level and wo rkup is being done currently. The patient during the workup had a CAT scan of the abdomen and pelvis , which revealed 3.8 x 4.2 x 2.6 cm collection in the medial wall of the distal sigmoid colon with a gas locule anteriorly. Upon questioning, the patient denies any abdominal surgery recently. However , she did have a sling procedure last year which can account for those findings. She also has never had a history of diverticulitis and never had a colonoscopy before. She has no pain in the area and no GI or symptoms. From the CAT scan report, the radiologist feels it may represent a residual of a prior episode of diverticulitis. Review of Systems: Otherwise related to this mass, unremarkable. Past Medical History: Significant for hypothyroidism. Past Surgical History: Tubal and hysterectomy. Allergies: TO NO MEDICATION. Social History: The patient does not smoke or drink alcohol. Family History: Noncontributory. Physical Examination: Vital Signs: Stable. She is afebrile. She is awake, alert, oriented x3. Blunted affect. Head and Neck: No masses. Chest: Clear. Heart: S1, S2. Abdomen: Soft, nondistended, nontender. Positive bowel sounds. Extremities: Neurovascularly intact. Neuro: Nonfocal. Diagnostic Data: Reviewed. White count is 9.5, slight left shift. INR is 1.0. Chemistry shows per sistent hypokalemia. Most recent potassium is 2.6. Glucose is 260. Vitamin D level of 38.4. T4 is 0.62. ACTH is pending. Aldosterone levels are pending. PTH level was 247.6. Assessment: A 68-year-old female with multiple medical problems and diagnosed with hypokalemia and w orkup in progress with an incidental finding of a fluid collection on the medial aspect of the distal sigmoid colon. Recommendations: I believe this collection is secondary to the recent sling surgery last year. Ther e is no need for any surgical intervention at this time. I would recommend repeating the CAT scan in 4-6 months to make sure it is not getting worse as the patient is asymptomatic. There is no interve ntion necessary, plus it would be difficult to drain this fluid as it is on the medial aspect of the distal sigmoid colon. IR would have a difficult time accessing this area, and there is no need for a ny surgery. The patient was advised to get a colonoscopy, however, as an outpatient. Plan of care d iscussed in detail with Dr. Pop. WALLACE/FIDELINA Voice ID: [id number] Report ID: [id number]
[2023-09-24] MEDS ORDERED: NA CHLORIDE 0.9% 250 ML ONE (11:57)
--- NOTE | 2023-09-24 12:33 | P.CNS ---
Date of Consult: 09/24/23 Reason for Consult: Severe hypokalemia Chief Complaint: severe hypokalemia History of Present Illness: Patient is 68 years of age has been sick since New Year's has been complaining of progressive edema of her extremities she was admitted to the floor and was found to be severely hypokalemic, hypoalbuminemic with uncontrolled diabetes Allergies tomato Allergy (Verified 09/18/23 20:02) Hives Home Medications: Levothyroxine [Synthroid*] 1 cap PO SEECOM 10/20/13 Triamterene/Hydrochlorothiazid [Triamterene-Hctz 37.5-25 mg Cp] 1 cap PO DAILY 09/18/23 - Past Medical/Surgical History Diabetic: No -: hypothyroid -: tubal, hysterectomy -: Cholecystectomy - Social History Smoking Status: Never smoker Alcohol use: No CD- Drugs: No Caffeine use: Yes Place of Residence: Home Review of Systems 10-point ROS is otherwise unremarkable General: Weakness Cardiovascular: Edema Physical Examination Temp Pulse Resp BP Pulse Ox 96.9 F 96 H 18 139/76 93 09/24/23 08:36 09/24/23 08:36 09/24/23 08:36 09/24/23 08:36 09/24/23 08:36 General: Alert, In no apparent distress, Oriented x3 Neck: Supple Respiratory: Clear to auscultation bilaterally Cardiovascular: No edema, Normal pulses, Regular rate/rhythm, Normal S1 S2, Edema (2+ edema) - Problems (1) Hypokalemia Current Visit: No Status: Acute Plan: Patient is 68 years of age admitted with severe hypokalemia and alkalosis patient's been taking diuretics for a very long. His hemoglobin A1c was around 9 with hyperglycemia on admission likely she has an underlying uncontrolled diabetes patient's blood pressure was also normal of note her serum cortisol was very elevated patient appears to have hypokalemic metabolic alkalosis urinary potassium is elevated continue with aggressive potassium replacement Will consider adding an SGLT2 inhibitor to control her blood sugars so far all the scans have been nondiagnostic in the CT scan of the chest and the abdomen is for hyper cortisol is not apparent / Agree wit MRI to R/o pituatary adenoma/ Add Glyburide/
[2023-09-24] MEDS: AMILORIDE HCL 5 MG TABLET PO SCH (14:01)
--- NOTE | 2023-09-24 16:38 | P.PN ---
Subjective Date of Service: 09/24/23 Chief Complaint: severe hypokalemia Subjective: Other (bedbound) Physical Examination - Vital Signs Temperature: 98.4 F Blood Pressure: 145/79 Pulse: 108 Respirations: 18 Pulse Ox (%): 92 - Physical Exam General: Other (no acute distress) HEENT: Atraumatic, Normocephalic Neck: Supple Respiratory: Other (symmetric chest expansion) Cardiovascular: No rubs, No murmurs Gastrointestinal: Soft and benign, No guarding Musculoskeletal: No clubbing Integumentary: No warmth Neurological: Normal tone Lymphatics: No axilla or inguinal lymphadenopathy Urinary: Other (No bladder distention) External genitalia: Deferred Rectal: Deferred - Studies Microbiology Data (last 24 hrs): 09/18/23 11:10 Blood - Blood Aerobic Blood Culture - Final No growth in 5 days. 09/18/23 11:10 Blood - Blood Anaerobic Blood Culture - Final No growth in 5 days. 09/18/23 11:00 Blood - Blood Aerobic Blood Culture - Final No growth in 5 days. 09/18/23 11:00 Blood - Blood Anaerobic Blood Culture - Final No growth in 5 days. Assessment And Plan - Plan # Hypokalemia, metabolic alkalosis, & hypochloriduria 2/2 diuretic use + post- hypercapneic state vs Frances syndrome w/ crisis On triamterene/HCTZ at home ABG +hypercapnea +Renal K wasting w/ urine K high No renal chloride wasting, urine Cl low No vomiting or diarrhea reported K repletion ongoing Increase spironolactone to 100 mg po daily Encourage liberal po fluid intake # Elevated serum cortisol levels, suspect ACTH-independent frances syndrome from bilateral adrenal hyperplasia CT A/P showed bilateral diffuse adrenal thickening, without discrete nodules Severe serum cortisol elevation + metabolic alkalosis + refractory hypoK suspicious for frances syndrome w/ crisis from bilateral adrenal hyperplasia Eval for Frances's syndrome ongoin-hour urinary free cortisol ordered (2 wk turnaround time) Overnight salivary cortisol test will require special tubes that will need to be ordered from elsewhere. Defer salivary cortisol test at this time. Low-dose overnight dexamethasone suppression test ordered for tonight. 8am serum cortisol level tomorrow. F/u serum ACTH (bld sample obtained on 09/22, before dexamethasone received) & DHEAS (bld sample to obtain on 09/25, after dexamethasone received) If serum cortisol not suppressed, & ACTH level not high, will need transfer to another tertiary hospital for further endo mngt of Frances crisis. 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 Primary hyperPTH ruled out PseudohypoPTH is ruled out as patient has hypo-not hyperPO4 25OHD wnl F/u 1,25OH2D # Hypokalemia K repletion ongoing Jo Ann dose increased as above # HypoPO4 Phos repletion prn # Anasarca, suspect 2/2 secondary hyperaldosteronism from frances syndrome, aggravated by severe hypoalbuminemia BNP sig elevated at 1500 TTE on 09/20/2023 showed normal LVEF > 60% Chest CT showed no identifiable cause of elevated BNP, no e/o pulmo Htn Increase jo ann dose as above Lasix prn # Hypothyroidism Levothyroxine # NSTEMI, prolonged QT Per Cardiology # DM2 Mngt per primary team
[2023-09-24] MEDS ORDERED: SPIRONOLACTONE 25 MG TABLET PO ONE (17:01)
[2023-09-24] MEDS ORDERED: POTASSIUM PHOS 30 MM in NA CHLORIDE 0.9% 500 ML IV ONE (17:02)
[2023-09-24] MEDS ORDERED: POTASSIUM PHOS IN 0.9 % NACL 0 MMOL/0 ML BAG IV ONE (17:51)
[2023-09-24 18:52] LABS: Magnesium 1.7 mg/dL (1.6-2.4); Phosphorus 1.8 mg/dL (2.5-4.9); Potassium 3.2 mEq/L (3.5-5.1)
[2023-09-24] MEDS: INSULIN GLARGINE 100 UNIT/ML SQ SCH (20:29)
[2023-09-24] MEDS ORDERED: dexAMETHasone 4 MG TAB PO ONE (23:00)
[2023-09-25 05:33] LABS: Absolute Lymphocytes (CBC) 0.7 K/uL (0.7-4.9); Lymphocytes % 8.6 % (15.3-44.8); MCV 86.8 fL (80-100); Platelets 218 thou/uL (152-406); RBC Red Blood Cell Count 4.61 M/uL (3.86-4.86)
[2023-09-25 06:02] LABS: Albumin 1.8 g/dL (3.4-5.0); Bilirubin Total 0.4 mg/dL (0.2-1.0); Magnesium 1.9 mg/dL (1.6-2.4); Phosphorus 3.2 mg/dL (2.5-4.9); Potassium 3.3 mEq/L (3.5-5.1); Protein, Total 4.8 g/dL (6.4-8.2)
[2023-09-25] MEDS: LEVOTHYROXINE SOD 0.075 MG TAB PO SCH (07:20)
[2023-09-25] MEDS: METFORMIN ER 500 MG TAB PO SCH ×2 (07:20→16:09)
--- NOTE | 2023-09-25 08:10 | P.PN ---
Date of Service: 09/25/23 Subjective: Feels ~same. Nothing better or worse. 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 glc in 300s in hospital; states recent bloodwork was all "normal" ~2 months ago by PCP A1c: 8.9; which avg glc would be ~210-220; however now >300s suspect patient without classic cushingoid appearance secondary to preciptous development - reportedly normal labs 2 months ago could lead to hypokalemia, could explain hypocalcemia, which in term cause her secondary hyperparathyroidism; leading to her significant electrolyte derangements; dry mouth given significant elevation of her 2am and 8 am cortisol levels, electrolyte derangements, intermittent tachycardia and LFTs, coupled with slow results, CT chest/abd/pelvis performed 09/23 CT to eval adrenals and commons locations for ectopic ACTH tumor; negative for any tumor; noted nonspecific adrenal thickening. Pt denies exogenous steroid use. Does use transdermal /vaginal estradiol - which has been shown NOT to affect serum cortisol levels, unlike oral /systemic estrogen replacement discussed with nephrology, dexamethasone low dose suppression test ordered - unable to be done over weekend so done 09/24 evening. cortisol levels 8am: 34.87 (1/22) MRI pituitary (09/25): 5mm area along left aspect pituitary gland, likely small microadenoma; CT negative for macroadenoma on admission radiology cancelled monday test due to partahyroid nuc med scan and uncertainty of safety of doing both; so MRI was delayed until 09/25 (09/25) nitiated transfer to [facility] / tertiary level of care facility given pituitary microadenoma, need for vector control assistant / surgery eval unable to get salivary cortisol testing done here ACTH still pending for several days most consistent with frances's disease; however ACTH still pending CT chest (09/23): trace b/l layering pleural effusions CT abd/pelvis (09/23): b/l diffuse adrenal thickening without nodules. Mild free ascites and trace layering pleural effusion. Distal sigmoid intramural lobulated fluid collection - possible residua of prior diverticulitis episode General surgery consulted 09/23 given mass/fluid collection seen on CT. Dr. Avila suspects secondary to recent sling surgery last year. no surgical intervention at this time. Recommends repeat CT in 4-6 months to monitor for worsening. Also advised to get outpatient colonoscopy in near future Metabolic alkalosis Severe Hypokalemia Hypophosphatemia Anasarca Nephrology consulted -suspects could also be secondary to diuretic use + posthypercapnic state Hold triamterene/HCTZ PTH 247.6 Parathyroid nuclear med scan (09/22): WNL Nephrology is following, increased spironolactone to 50mg daily 09/22 Aldosterone level pending, cortisol stim test performed 09/22 pending final results / ACTH NSTEMI Prolonged QT ?Tachyarrhythmia troponins mildly elevated trended flat Echo (09/20): 76% EF. Poor study Prolonged Qtc interval 631 09/18. 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 Severe hyperglycemia; uncontrolled Denies history of diabetes - reports "normal" routine blood work at PCP's office just 2-3 months ago. this would be sudden, new onset if true A1c does not fit with current glucose levels as noted above, and patient's report of better levels just 2-3 months ago raising further suspicion of frances syndrome started metformin 09/21 due to hyperglycemia / inability to give insulin to further worsening hypokalemia started low dose basal insulin to lower glc slightly and avoid hypokalemia - titrate as tolerated Consistent carb diet avoiding SSI given profound persistent hypokalemia VTE: Lovenox Code: Full Dispo: transfer to [facility]
--- NOTE | 2023-09-25 08:51 | RAD REPORT ---
EXAM DESCRIPTION: MRI - Pituitary W Wo Cont - 09/25/2023 8:38 am CLINICAL HISTORY: R/O pituitary mass Headache, abnormal lab values COMPARISON: Head Brain Wo Cont dated 09/18/2023 FINDINGS: The pituitary gland is normal sized. Along the left aspect of the pituitary gland there is 5 mm hypoenhancing lesion seen on dynamic T1 weighted sequence. This may represent a small microaden christiano. No macroadenoma seen. Sella turcica is normal in size. Pituitary stalk enhances normally. Includ ed limited portions of the brain parenchyma shows no pathologic finding. Visualize skullbase appears unremarkable. IMPRESSION: 5 mm area of hypoenhancement is seen along the left aspect pituitary gland which may rep resent a small microadenoma.
[2023-09-25] MEDS ORDERED: POTASSIUM CL SA 10 MEQ TAB PO ONE ×2 (09:00→19:13)
[2023-09-25] MEDS: FAMOTIDINE 20 MG/2 ML VIAL IV SCH (09:10)
[2023-09-25] MEDS: SPIRONOLACTONE 100 MG TAB PO SCH (09:12)
[2023-09-25] MEDS: AMILORIDE HCL 5 MG TABLET PO SCH (09:12)
[2023-09-25] MEDS: glipiZIDE 5 MG TAB PO SCH (09:13)
--- NOTE | 2023-09-25 17:01 | EKG ---
Test Date: 2023-09-22 Test Time: 13:13:59 Resistor Winder: CHUCK MEASUREMENT RESULTS: Intervals: Rate: 116 OK: 156 QRSD: 66 QT: 330 QTc: 458 Walker: P: 44 OK: 156 QRS: 18 T: 51 INTERPRETIVE STATEMENTS: Sinus tachycardia with premature atrial complexes Anterior infarct, age undetermined Abnormal ECG Compared to ECG 09/18/2023 10:58:05 Atrial premature complex(es) now present Prolonged QT interval no longer present Myocardial infarct finding still present Electronically Signed On 09-25-23 16:54:03 SPINNER CONCRETE PIPE by Charles Henriquez
--- NOTE | 2023-09-25 17:23 | EKG ---
Test Date: 2023-09-18 Test Time: 10:58:05 Fagoting Machine Operator: EJ MEASUREMENT RESULTS: Intervals: Rate: 105 OK: 138 QRSD: 80 QT: 478 QTc: 631 [place]: P: -20 OK: 138 QRS: 40 T: 117 INTERPRETIVE STATEMENTS: Sinus tachycardia Low voltage QRS Cannot rule out Anterior infarct, age undetermined Prolonged QT Abnormal ECG Compared to ECG 10/20/2013 11:56:51 Low QRS voltage now present Prolonged QT interval now present Sinus rhythm no longer present Myocardial infarct finding still present Electronically Signed On 09-25-23 17:01:03 STRIKE OFF MACHINE OPERATOR by Charles Henriquez
[2023-09-25] MEDS: INSULIN GLARGINE 100 UNIT/ML SQ SCH (19:56)
--- NOTE | 2023-09-26 01:26 | PN ---
Date of Progress Note: 09/25/2023 Chief Complaint: Severe hypokalemia. The patient denies complaints. Review of Systems: Denies chest pain, palpitation. Physical Examination: Lungs: Diminished breath sound at bases. Heart: S1, S2. Abdomen: Soft. Extremities: No edema. 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 The patient was on triamterene/HCTZ at home. A BG show hypercapnia. The patient is currently on spironolactone. Continue to monitor electrolytes a nd continue potassium repletion. 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 The patient may need Endocrinology re-evaluation. 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 Recommend to consult Endocrinology. I will transfer to higher level of care. 3.Hypophosphatemia. Phosphorus repletion as needed. 4.Anasarca secondary to hyperaldosteronism from Langtry syndrome aggravated by severe hypoalbuminemi a. Recommend to check urine protein creatinine ratio to assess for degree of proteinuria. 5.Hypothyroidism, on levothyroxine. Continue to monitor TSH. 6.Non-ST elevation myocardial infarction, prolonged QT per Cardiology recommendation. 7.Diabetes mellitus. Management per Primary Team. BHARGAV/FIDELINA Voice ID: [id number] Report ID: [id number]
[2023-09-26 04:38] LABS: Absolute Lymphocytes (CBC) 0.7 K/uL (0.7-4.9); Hematocrit 38.1 % (36.0-45.0); Lymphocytes % 8.1 % (15.3-44.8); MPV 8.9 fL (7.6-11.3); Platelets 259 thou/uL (152-406); RBC Red Blood Cell Count 4.37 M/uL (3.86-4.86)
[2023-09-26 05:23] LABS: Blood Morphology Comment NOT SEEN (NOT SEEN); Platelet Estimate ADEQ
[2023-09-26 05:32] LABS: Albumin 1.8 g/dL (3.4-5.0); Bilirubin Total 0.5 mg/dL (0.2-1.0); Magnesium 1.9 mg/dL (1.6-2.4); Phosphorus 3.9 mg/dL (2.5-4.9); Potassium 3.3 mEq/L (3.5-5.1); Protein, Total 4.8 g/dL (6.4-8.2)
[2023-09-26] MEDS ORDERED: POTASSIUM CL SA 10 MEQ TAB PO ONE ×2 (06:04→19:05)
[2023-09-26] MEDS: FAMOTIDINE 20 MG/2 ML VIAL IV SCH (07:53)
[2023-09-26] MEDS: METFORMIN ER 500 MG TAB PO SCH ×2 (07:53→17:13)
[2023-09-26] MEDS: AMILORIDE HCL 5 MG TABLET PO SCH (07:54)
[2023-09-26] MEDS: SPIRONOLACTONE 100 MG TAB PO SCH (07:54)
[2023-09-26] MEDS: glipiZIDE 5 MG TAB PO SCH (07:54)
[2023-09-26] MEDS ORDERED: LEVOTHYROXINE SOD 0.075 MG TAB PO ONE (10:15)
[2023-09-26] MEDS: LEVOTHYROXINE SOD 0.075 MG TAB PO SCH (10:24)
[2023-09-26] MEDS ORDERED: MAGNESIUM SULFATE 1 gm IVPB 1 GM/100 ML BAG IV ONE (14:26)
[2023-09-26] MEDS ORDERED: CALCITROL 0.25 MCG CAP PO SCH (15:00)
--- NOTE | 2023-09-26 16:15 | PN ---
Date of Progress Note: 09/26/2023 Subjective: The patient was admitted with hypokalemia, found to have salt wasting. Primary workup s how that she has bilateral adrenal hyperplasia and show possible central ACTH dependent. The patient 's workup showed no hyperaldosteronism but severe elevation in cortisol supporting possibility of ACT H dependent with central stimulation. The patient was placed on spironolactone. Responding very wel l. Objective: Vital Signs: When I saw the patient, her blood pressure 125/71, pulse of 71, afebrile. Chest: Clear to auscultation. Heart: S1, S2. Regular. Abdomen: Soft, nontender. Extremities: +1 edema. Neurologic: Alert, oriented. No focality. Current Medications: The patient on includes spironolactone, amiloride, Pepcid, levothyroxine, metfo rmin. Laboratory Data: Sodium 138, potassium 3.4, bicarb 32, BUN 6, creatinine 0.6. Assessment And Plan: 1.Hypokalemia secondary to salt wasting, secondary to [place] disease with the presence of hyperpara thyroidism, possible she has microadenoma on the MRI. a.I am going to continue spironolactone. Keep holding trimethoprim, hydrochlorothiazide. Continue calcitriol for the time being and we will follow up the patient. 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 3.Hypomagnesemia. I will supplement. 4.Edema secondary to high cortisol. Continue spironolactone. 5.Alkalosis secondary to hypokalemia and hydrochlorothiazide, as above. MAYDA/FIDELINA Voice ID: [id number] Report ID: [id number]
--- NOTE | 2023-09-26 16:24 | P.PN ---
Subjective Date of Service: 09/26/23 Chief Complaint: severe hypokalemia Patient reports generalized edema and dry mouth. 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 A1c: 8.9. CT abdomen: Normal adrenals; negative for any tumor. Pt denies exogenous steroid use. MRI pituitary (09/25): 5mm area along left aspect pituitary gland, likely small microadenoma; There is the need for crochet beader / surgery eval so transfer to [facility] initiated. ACTH still pending. CT chest (09/23): trace b/l layering pleural effusions CT abd/pelvis (09/23): b/l diffuse adrenal thickening without nodules. Mild free ascites and trace layering pleural effusion. Distal sigmoid intramural lobulated fluid collection - possible residua of prior diverticulitis episode General surgery consulted 09/23 given mass/fluid collection seen on CT. Dr. Avila suspects secondary to recent sling surgery last year. no surgical intervention at this time. Recommends repeat CT in 4-6 months to monitor for worsening. Also advised to get outpatient colonoscopy in near future. Metabolic alkalosis Severe Hypokalemia Hypophosphatemia Anasarca Suspected related to diuretic use. Triamterene/HCTZ on hold PTH 247.6 Parathyroid nuclear med scan (09/22): WNL Nephrology is following, on spironolactone titrated to 50mg daily 09/22 Aldosterone level pending, cortisol stim test performed 09/22 pending final results / ACTH NSTEMI Prolonged QT ?Tachyarrhythmia troponins mildly elevated trended flat Echo (09/20): 76% EF. Poor study Prolonged Qtc interval 631 09/18. on admission; repeat ekg with QT < 500 Avoid QT prolonging medications. Cardiology following - recommended stress test once more clinically stable / electrolyte derangements resolve Pt had a bout of SVT that resolved spontaneously. Could be related to hypokalemia. Continue to optimize potassium. Currently in sinus rhythm. Severe hyperglycemia; uncontrolled Denies history of diabetes - reports "normal" routine blood work at PCP's office just 2-3 months ago. this would be sudden, new onset if true Hypoglycemia raises suspicion for frances syndrome started metformin 09/21 due to hyperglycemia / inability to give insulin to further worsening hypokalemia Started on Lantus insulin. Titrate for hyperglycemia control. Consistent carb diet VTE: Lovenox Code: Full Dispo: transfer to [facility] initiated.
[2023-09-26 17:39] LABS: Magnesium 2.3 mg/dL (1.6-2.4); Phosphorus 3.5 mg/dL (2.5-4.9)
[2023-09-26 20:05] VITALS: BP 125/72; TEMP 97; O2SAT 99
[2023-09-26] MEDS: INSULIN GLARGINE 100 UNIT/ML SQ SCH (20:24)
[2023-09-27 18:09] LABS: Vitamin D 1,25-Dihydroxy Total 87 pg/mL (18-72); Vitamin D,1,25-OH2, D2 <8 pg/mL
== END 2023-09-26 21:30 | disposition short-term general hospital (02) | DRG 643 ==
LOC: ER 10:10 → ERHOLD 15:06 → 4TH 16:00 → OBSVTOIN 09-19 12:44
PROVIDERS: ADMIT Internal Medicine; ATTEND Internal Medicine
DX: E24.2 Drug-induced Cushing's syndrome (principal); I21.4 Non-ST elevation (NSTEMI) myocardial infarction; E87.1 Hypo-osmolality and hyponatremia; E87.3 Alkalosis; E87.6 Hypokalemia; E03.9 Hypothyroidism, unspecified; E11.65 Type 2 diabetes mellitus with hyperglycemia; I10 Essential (primary) hypertension; E83.51 Hypocalcemia; K31.89 Other diseases of stomach and duodenum; E88.09 Other disorders of plasma-protein metabolism, not elsewhere classified; E83.31 Familial hypophosphatemia; T50.2X5A Adverse effect of carbonic-anhydrase inhibitors, benzothiadiazides and other diuretics, initial encounter; T49.0X5A Adverse effect of local antifungal, anti-infective and anti-inflammatory drugs, initial encounter; R06.89 Other abnormalities of breathing; R94.31 Abnormal electrocardiogram [ECG] [EKG]; Z74.01 Bed confinement status; Z98.51 Tubal ligation status; Z11.52 Encounter for screening for COVID-19; Z90.49 Acquired absence of other specified parts of digestive tract; Z91.018 Allergy to other foods; Z79.899 Other long term (current) drug therapy; Z79.890 Hormone replacement therapy; Z90.710 Acquired absence of both cervix and uterus
CPT/HCPCS: 36415; 70450; 70553; 71045; 71046; 71260; 74178; 78070; 80048; 80053; 80061; 81001; 82024; 82088; 82306; 82435; 82436; 82530; 82533; 82570; 82627; 82652; 82805; 82947; 83036; 83605; 83690; 83735; 83880; 83935; 83970; 84100; 84132; 84133; 84156; 84300; 84439; 84443; 84484; 85025; 85610; 86140; 87040; 87070; 87081; 87324; 87804; 87811; 93005; 93306; 93970; 99285; A9500; A9577; G0378; J0696; J0834; J1200; J1815; J3475; J3480; J7040; J7050; J7120; J8540; Q9967

== ENCOUNTER 2023-12-15 08:41 | Inpatient (IN) | payer OTHER ==
[2023-12-15] MEDS ORDERED: D50W 25 GM/50 ML SYRINGE IV PRN (12:21)
[2023-12-15] MEDS ORDERED: GLUCAGON 1 MG/VIAL IM PRN (12:21)
[2023-12-15] MEDS ORDERED: BISACODYL E.C. 5 MG TAB PO PRN (12:29)
[2023-12-15] MEDS ORDERED: ONDANSETRON 4 MG (ODT) TAB PO PRN (12:30)
[2023-12-15] MEDS ORDERED: D10W 125 ML IV PRN (12:34)
[2023-12-15 13:36] LABS: Calcium Oxalate Crystals- Ur Moderate /HPF (None Seen); Specific Gravity 1.018 (1.005-1.030); Urine Bacteria 20-50 /HPF (<20); Urine Bilirubin NEGATIVE (Negative); Urine Blood Negative (Negative); Urine Clarity Extremely Turbid (Clear); Urine Color Dark-Yellow (Yellow); Urine Culture Reflex Order REFLEXED; Urine Glucose NEGATIVE (Negative); Urine Ketones NEGATIVE (Negative); Urine Micro Reflex YN NO BILL MICROSCOPIC; Urine Mucus 2+ /HPF (None Seen); Urine Nitrite NEGATIVE (Negative); Urine Protein NEGATIVE (Negative); Urine Urobilinogen Normal (Normal); Urine WBC >50 /HPF (<5); Urine WBC Clump Rare /HPF (None Seen); Urine pH 5.5 (5.0-7.0)
[2023-12-15] MEDS: INSULIN REGULAR (HUMAN) 100 UNIT/ML SQ SCH (16:39)
[2023-12-15] MEDS: HYDROCORTISONE 10 MG TAB PO SCH (20:39)
[2023-12-15] MEDS: ACETAMINOPHEN 325 MG TABLET PO PRN (20:43)
[2023-12-15] MEDS: GUAIFENESIN/DM 5 ML UCUP PO PRN (20:43)
--- NOTE | 2023-12-16 03:53 | HP ---
Date of Admission: 12/15/2023 Time Of Service: 1:10 p.m. Chief Complaint: "I became very weak after being in the hospital and I had my adrenal glands removed ." History Of Present Illness: Ms. 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 She was seen in the emergency room on 11/27, de hydrated with urinary tract infection, septic shock, and was in Addisonian crisis with severe hypoten giselle. Chest x-ray identified right upper lobe haziness indicating pneumonia and blood work showed hy ponatremia, hypokalemia, hypocalcemia, with anemia. She was given IV steroids, but in ICU received a ntibiotics after blood cultures. Her electrolytes, sodium, potassium, chloride were addressed. She had D5 normal saline. I's and O's monitored. Physical therapy was ordered. She was able to improve and downgraded from ICU to the floor on 12/01/2023. At that point, she had significant proximal wea kness in the lower and upper extremities, was diagnosed as critical illness myopathy. She had severe hypoalbuminemia, microcytic anemia, and received a unit of packed red blood cells. Her lung expansi on was diminished, and she had persistent hypokalemia with hypocalcemia, hyperglycemia, again with a proximal weakness. She had a mild cough. Chest x-ray was done after she had decreased breath sounds and did reveal partial resolution of the bilateral pulmonary opacities, which were probably again pn eumonia. Due to her proximal weakness, she requires moderate assistance for sit to stand and ambulat e with contact guard to minimum assist. Also, performing activities of daily living, moderate assist ance required and begin to ambulate also moderate assistance required. She has persistent abnormal l abs including low hemoglobin, hematocrit, and white blood cells. Therefore, in addition to her issue s along with requiring a steroid replacement, she is determined to be an appropriate candidate for in patient rehabilitation for a critical illness myopathy and management of her comorbid conditions. e is functioning well below her baseline and aggressive therapy is required. Admission to a [facility] facility would likely not put her in ideal condition as she may be significantly worsened. Past Medical History: Hypothyroidism, Madonna syndrome, Addisonian crisis, hypertension, dyslipidemi a, anxiety. She is status post adrenalectomy. Had urinary tract infection, pneumonia, multi-electro lyte abnormalities. Allergies: TOMATO. Medications: Tylenol 650 mg every 6 hours as needed; Dulcolax 10 mg daily; Lovenox 40 mg subcutaneou sly daily; Robitussin 5 mL every 6 hours as needed; cortisone 20 mg daily; levothyroxine 0.075 mg Mon, Monday, Monday, , Monday, Monday; melatonin 3 mg at bedtime; Zofran 4 mg every 6 h ours as needed; Protonix 40 mg daily; potassium 20 mEq daily; Senokot-S 2 at bedtime; Lamisil 250 mg daily; thiamine 100 mg daily. X-ray/imaging: Chest x-ray from 11/28/2023, central venous line with the catheter tip in superior ve na cava. No pneumothorax. Chest x-ray from 12/12/2023 showed partial resolution of bilateral pulmon olman opacities probably pneumonia. Family History: Noncontributory. Social History: No alcohol, tobacco, or IV drug use. Review of Systems: She is actually doing better now. She is able to stand and ambulate and mobilize wheelchair. She de nies any new significant complaints such as rash, any fevers or chills. Again, mild myalgias, arthra lgias. No headache. No psychiatric issues. No active gastrointestinal or genitourinary issues. Current Level Of Functioning: Independent for eating, oral hygiene. Moderate assist for toileting, showering. She is independent with upper body dressing, moderate assist for lower body dressing. Do nning and doffing footwear, also moderate assistance. Rolling [id number], [id number] and from sitting to lying and lying to sitting position, moderate assistance required. Perform a sit to stand and transfer from bed to chair, to toilet, moderate assistance. At this point, she is beginning to ambulate 20-30 feet, moderate assistance with a rolling walker. Physical Examination: Vital Signs: Blood pressure 120/59, pulse 56, respiratory rate 16, temperature 97.6, O2 saturation 9 7%. General: Ms. Munoz is sitting in a chair beside the bed. HEENT: She is normocephalic, atraumatic. Sclerae anicteric. Oropharynx is moist. Neck: Supple. Chest: Clear. Heart: Regular. No significant edema, cyanosis, or clubbing neurologically. Neurological: Diffuse weakness proximally in upper and lower extremities, more than distally. Senso ry examination essentially slight stocking-glove loss and depressed reflexes. Medical And Rehabilitation Assessment And Plan: Ms. Munoz is admitted to the inpatient rehabilitatio n unit with impairment category 06, neurological condition. Impairment group code is 03.8 neuromuscu lar disorder. Etiologic Diagnosis: Critical illness myopathy. Comorbidities: Decreased mobility, decreased physical functioning, falls, fatigue, hypertension, hyp onatremia, hypoalbuminemia, hypocalcemia, hypokalemia, hyponatremia, hypotension, hypothyroidism, momo n, urinary tract infection, sepsis, Addisonian crisis, microcytic anemia. Plan: 1.She will have physical and occupational, and maybe speech therapy for 3.5 hours, 5/7 days. 2.We will continue Tylenol for pain, Dulcolax for constipation, Lovenox for DVT prophylaxis, levothy roxine for hypothyroidism, melatonin for insomnia, Zofran for nausea, Protonix for GE reflux, potassi um for hypokalemia, Lamisil for fungal infection, thiamine 100 mg daily to improve peripheral neuropa thy symptoms. Comorbidities That Are Impacting Her Rehabilitation: Her critical illness myopathy produced proximal more than distal lower and upper extremity weakness. She is at significant risk of the knees buckli ng and falling and she has had a few episodes of that, will be very careful as she does sit to stand with gait belt in place and a 2-wheeled walker will be used at all times. She will have to continue with steroids, which may increase the white blood cell count and therefore be very important taken in to perspective what that may indicate and not necessarily that she has ongoing infection, but the eff ect the white blood cell count increase may be due to steroids. Rehab Specific Plan: Ms. Munoz will have physical, occupational, speech therapy for 3.5 hours, 5/7 d ays to improve her ability to transfer bed to chair, toileting and showering. She will be able to am bulate with a rolling walker to 250 feet, propel a wheelchair 250 feet, go up and down 10 steps. She does live in a single-story home but does have a threshold about 4-6 inches to climb to get into the house and she will be working with that. Also, assistive devices will be used as necessary, for don ramakrishna and doffing footwear and then socks, and for reaching items on the floor. Ms. Munoz has a good understanding of the process of admission to the inpatient rehabilitation facili and how she will benefit from physical, occupational, and speech therapy. If need be, additional services from the Renal Service, Cardiology Service, Pulmonary Service will be consulted. Given her complex medical condition and risk of further complications, rehabilitation cannot be safely or effec tively performed at the lower level of facility such as [facility]. Barriers To Discharge: Currently, the critical illness myopathy does produce the weakness in the pro ximal or distal lower extremity. Again, high risk of falling. Therefore, fall precautions strictly adhered to. She does have Lovenox and will be careful to monitor her anemia and risk of bleeding and that should be even after discharge. Length Of Stay: About 2 weeks. Disposition: Home with family and continue therapy via Home Health. Prognosis: Good. Rehab Specific Goals: 1.Become independent with upper and lower body dressing, donning and doffing of footwear, independen tly performing showering and toileting. 2.Independently ambulate 250 feet with a rolling walker. 3.Independently propel a wheelchair 250 feet. 4.Independently go up and down 10 steps with bilateral handrails. 5.Independently perform all cognitive functioning and safety awareness and medication management. The above goals were reviewed with Ms. Munoz and she is in agreement. By signing this document, I acknowledge that I personally performed a full physical examination on Ms Nate Munoz no later than 24 hours after her admission to the inpatient rehabilitation facility and deter mined that she is able to tolerate the above course of treatment at an intensive level for reasonable period of time. A detailed individualized plan of care for her will be completed by hospital day 4 based on the preadmission screen, history and physical, and therapy evaluations. ELVI/FIDELINA Voice ID: [id number]
[2023-12-16 05:58] VITALS: BMI 28.5
[2023-12-16] MEDS: LEVOTHYROXINE SOD 0.075 MG TAB PO SCH (06:36)
[2023-12-16] MEDS: PANTOPRAZOLE 40MG TABLET PO SCH (06:36)
[2023-12-16] MEDS: ENOXAPARIN 40 MG/0.4 ML SQ SCH (07:02)
[2023-12-16 08:06] LABS: Anion Gap 8.6 mEq/L (5.0-15.0); Magnesium 1.9 mg/dL (1.6-2.4); Potassium 3.6 mEq/L (3.5-5.1); Prealbumin 21.3 mg/dL (20-40)
[2023-12-16 08:18] LABS: Absolute Basophils 0.2 K/uL (0-0.5); Absolute Eosinophils 0.1 K/uL (0-0.5); Absolute Lymphocytes (CBC) 1.2 K/uL (0.7-4.9); Absolute Monocytes 0.5 K/uL (0.1-1.3); Absolute Neutrophil 4.7 K/uL (1.8-8.0); Basophils % 2.4 % (0-1.3); Eosinophils % 1.9 % (0-4.4); Hemoglobin 10.6 g/dL (12.0-15.0); Lymphocytes % 17.7 % (15.3-44.8); MCH 28.1 pg (27.0-35.0); MCV 87.8 fL (80-100); MPV 8.9 fL (7.6-11.3); Monocytes % 7.6 % (3.3-12.3); Neutrophils % 70.4 % (41.7-73.7); Platelets 251 thou/uL (152-406); RBC Red Blood Cell Count 3.76 M/uL (3.86-4.86); Red Cell Distribution Width 18.3 % (12.1-15.2)
[2023-12-16] MEDS: POTASSIUM CL SA 10 MEQ TAB PO SCH (09:02)
[2023-12-16] MEDS: terbinafine HCL 250 MG TAB PO SCH (09:02)
[2023-12-16] MEDS: HYDROCORTISONE 10 MG TAB PO SCH (09:02)
[2023-12-16] MEDS: THIAMINE HCL 100 MG TABLET PO SCH (09:03)
[2023-12-16] MEDS: DOCUSATE NA/SENNA CONC 1 TAB PO PRN (20:14)
[2023-12-16] MEDS: MELATONIN 3 MG TABLET PO PRN (20:15)
[2023-12-18] MEDS: PANTOPRAZOLE 40MG TABLET PO SCH (06:58)
[2023-12-18] MEDS: CRANBERRY FRUIT EXTRACT 200 MG CAP PO SCH (08:24)
--- NOTE | 2023-12-19 01:08 | PN ---
Date of Progress Note: 12/18/2023 Time Of Service: 1:20 p.m. Subjective: Ms. Munoz is lying in bed in between therapy sessions. Denies any symptoms of pain sinc e she is beginning to make progress with physical therapy and weakness in the lower extremities and u pper extremities, more proximally than distally. She has no new complaints. Objective: No fevers, chills, nausea, vomiting. No significant myalgias, arthralgias, rash, headach e, weight change. No active psychiatric or gastrointestinal issues. Physical Examination: Vital Signs: Blood pressure 121/61, pulse 80, respiratory rate 16, temperature 98.0, oxygen saturati on 97%. Weight 166 pounds, height 5 feet 4 inches, BMI 28.5. General: Ms. Munoz is resting in bed in the therapy sessions. HEENT: She is normocephalic, atraumatic. Sclerae anicteric. Oropharynx moist. Neck: Supple. Chest: Clear. Extremities: Show no significant edema, cyanosis. Mild weakness proximally more than distally in e lower and upper extremities and the ones weaker giving out. Laboratory Studies: Blood sugars ranged from 96 to 142. Her cultures did grow E. coli and Citrobact er koseri. Her sensitivities are bravo sensitive essentially. We will start ciprofloxacin 500 mg twic e daily for 5 days. Medications: Tylenol 650 mg every 6 hours as needed, Dulcolax 10 mg per rectum for constipation, Anant enox 40 mg subcutaneously daily for DVT prophylaxis, guaifenesin 5 mg every 6 hours for cough, hydroc ortisone 10 mg at bedtime and 20 mg daily for adrenal insufficiency, Synthroid 0.075 mg on Monday, , Monday, , Monday, Monday, melatonin 3 mg at bedtime, Zofran 4 mg every 6 hours as needed, Protonix 40 mg daily, potassium 20 mEq daily, Senokot-S 2 at bedtime, and she is now started on ciprofloxacin 5 mg twice daily for 5 days, Lamisil 250 mg daily, thiamine 100 mg daily. Progress Made With Physical And Occupational Therapy: Today with physical therapy, she did multiple jqexu-et-oharr transfers with contact guard assistance using a rolling walker. She posterior propell ed a wheelchair with minimum assistance provided by the physical therapist over 250 feet. She took a rest break as needed. She ambulated 300 feet and 150 feet with contact guard assistance using a [employer] walker, emphasis placed on upright posture. With occupational therapy, minimal assistance for s it-to-stand transfers. Ms. Munoz is making excellent progress with physical and occupational therapy. Assessment And Plan: Ms. Munoz is a 68-year-old patient in the rehabilitation unit with critical ill ness myopathy, from which she is recovering very well. She has urinary tract infection with E. coli and Citrobacter koseri that are near pansensitive and she is on Cipro. She has insomnia addressed wi melatonin, hypothyroidism addressed with Synthroid, adrenal insufficiency for which she is on hydr ocortisone, Lovenox for DVT prophylaxis, Tylenol for pain. Again, she will continue with physical an d occupational therapy for 3 hours a day, 5 of 7 days. Comorbidities That Are Impacting Rehabilitation: She now has urinary tract infection with multiple b acteria that have been infectious pansensitive and she will continue with oral antibiotics and will b e followed potentially after discharge with repeat urinalysis depending on if she is asymptomatic. LB/MODL Voice ID: [id number] Report ID: [id number]
[2023-12-19] MEDS: CIPROFLOXACIN HCL 500 MG TAB PO SCH (10:47)
--- NOTE | 2023-12-19 19:13 | PN ---
Date of Progress Note: 12/19/2023 Time Of Service: 1:30 p.m. Subjective: Ms. Munoz is resting in bed in between therapy sessions. She is in no acute distress. She has no complaints. She does have diffuse weakness in the lower and upper extremities, more proxi suri than distally that is slightly improving in terms of recovery. Objective: No fevers, chills, nausea, vomiting, mild myalgias, arthralgias. No rash, headache, weig ht change today. Physical Examination: Vital Signs: Blood pressure 106/56, pulse 78, respiratory rate 16, temperature 98, oxygen saturation 96%. General: Again, Ms. Munoz is resting in bed, in no acute distress. HEENT: She appears normocephalic, atraumatic. Sclerae anicteric. Oropharynx pink and moist. Neck: Supple. Chest: Clear. Extremities: She does have proximal lower and upper extremity weakness consistent with her myopathy. Laboratory Studies: Blood sugars ranged from 91 to 137. X-ray/imaging: No new x-rays or imaging. Medications: Medications have been reviewed and remain unchanged. She is receiving ciprofloxacin fo r urinary tract infection, Lovenox for DVT prophylaxis, Tylenol for pain, cough treated with perphena zine, she has steroids for adrenal insufficiency, she did have adrenal glands removed and needs stero ids twice daily, she is taking actually 10 mg at bedtime, 20 mg daily, hypothyroidism addressed with Synthroid 0.075 mg daily, melatonin for insomnia, Protonix for GE reflux, potassium replacement on brooklynn abdiaziz, she has Lamisil for antifungal treatment on lower extremity, and thiamine 100 mg daily for poten tial alcohol related withdrawal symptoms which she is not having any evidence of. Progress Made With Physical And Occupational Therapy: Today, she went to physical therapy, ambulated 450 feet and 200 feet with standby assistance using a rolling walker, emphasis placed on upright pos ture, hxash-sn-bvoog transfers done with standby assistance. Occupational therapy, supervision for s it-to-stand transfer with toilet hygiene. She did well and tolerated therapy session without any dif ficulty. Ms. Munoz is making great progress recovering from her critical illness myopathy, strength regaining well, ambulating very well, and performing activities of daily living with improvement. Assessment And Plan: Ms. Munoz is a 68-year-old patient in the rehabilitation unit with critical ill ness myopathy, from which she is recovering well, ambulating again very well. She has multiple comor bid conditions that have been addressed above including urinary tract infection, hypothyroidism, adre nal insufficiency, insomnia, and she is treated also for DVT prophylaxis. Those will be continued an d she will receive physical, occupational, and speech therapy again for 3.5 hours, 5 of 7 days. Comorbidities That Are Impacting Rehabilitation: She is finishing off antibiotics for bacterial infe ction that is not negatively impacting her rehabilitation. ELVI/FIDELINA Voice ID: [id number] Report ID: [id number]
[2023-12-20 04:47] LABS: Absolute Eosinophils 0.1 K/uL (0-0.5); Absolute Lymphocytes (CBC) 1.2 K/uL (0.7-4.9); Absolute Monocytes 0.5 K/uL (0.1-1.3); Absolute Neutrophil 4.3 K/uL (1.8-8.0); Basophils % 0.3 % (0-1.3); Eosinophils % 1.3 % (0-4.4); Hemoglobin 10.2 g/dL (12.0-15.0); Lymphocytes % 19.7 % (15.3-44.8); MPV 8.8 fL (7.6-11.3); Monocytes % 8.7 % (3.3-12.3); Nucleated Red Blood Cells % 0.1 % (0-0); Platelets 257 thou/uL (152-406); RBC Red Blood Cell Count 3.52 M/uL (3.86-4.86); Red Cell Distribution Width 18.3 % (12.1-15.2)
[2023-12-20 04:55] LABS: Anion Gap 7.9 mEq/L (5.0-15.0); Potassium 3.9 mEq/L (3.5-5.1)
[2023-12-20] MEDS: HYDROCORTISONE 10 MG TAB PO SCH (16:51)
--- NOTE | 2023-12-20 23:02 | PN ---
Date of Progress Note: 12/20/2023 Time Of Service: 1:40 p.m. Subjective: Ms. Munoz is resting comfortably. No significant issues such as complaints of fevers or chills, myalgias, arthralgias, rash, headache, weight change and doing very well in terms of her reg ain of strength. Says the proximal lower and upper extremity strength is returning well. Physical Examination: Vital Signs: Blood pressure 104/56, pulse 86, respiratory rate 16, temperature 97.8, oxygen saturati on 99%. General: Ms. Munoz is doing well. HEENT: She is normocephalic, atraumatic. Sclerae anicteric. Oropharynx is moist. Neck: Supple. Chest: Clear. Musculoskeletal: Strength is returning well in upper and lower extremities. Laboratory Studies: White blood cell count 6.1, hemoglobin 10.0, platelets 257. Sodium 141, potassi um 3.9, chloride 107, carbon dioxide 30, BUN 11, creatinine 0.35, glucose ranged from 93-134, calcium 8.6. X-ray/imaging: No new x-rays or imaging. Medications: She continues ciprofloxacin for urinary tract infection, Lovenox for DVT prophylaxis, c ortisone for her adrenal insufficiency after a renal glands were removed. She has Synthroid for hypo thyroidism, melatonin for insomnia, Zofran for nausea, Protonix for GE reflux, potassium replacement on board, Senokot for constipation, and thiamine is on board as well. Progress Made With Physical And Occupational Therapy: Today with physical therapy, okvws-on-uyfkv tr ansfers done independently with a rolling walker. Required minimum to moderate assist for completion of some transfers into the car and out of the car. She ambulated 200 feet to 500 feet independently with a rolling walker. She was able to ascend and descend 5 steps with contact guard assistance usi ng bilateral handrails. She independently used a rolling walker on uneven sidewalks services for ove r 200 feet. With occupational therapy, independent with [id number]-[id number] transfers, ambulated from room to gym with a rolling walker with independence. She is ready for discharge home. She has been doing very well. Assessment: Ms. Munoz is a 68-year-old patient in the rehabilitation unit with critical illness myop athy and proximal weakness in upper extremities from which she is recovering very well. She has fredy rbidities, urinary tract infection, hypothyroidism, and renal insufficiency, insomnia, constipation h ypokalemia. In addition, hypothyroidism. Plan: 1.Continue physical and occupational therapy 3 hours a day, 5 of 7 days next. 2.Her comorbid conditions, which are listed are managed by continuing and finishing all of her medic ation including for her urinary tract infection. Again, the steroid cortisone replacement for adrena l insufficiency, melatonin, levothyroxine, Senokot, thiamine, and Tylenol for pain. Comorbidities That Are Impacting Her Rehabilitation: Her comorbid conditions are stably managed and do not negatively impact her rehabilitation. ELVI/FIDELINA Voice ID: [id number] Report ID: [id number]
--- NOTE | 2023-12-21 20:59 | PN ---
Date of Progress Note: 12/21/2023 Time Of Service: 1:45 p.m. Subjective: Ms. Munoz is resting comfortably. She denied any significant distress. Her left side i s moving very well. She has no new complaints. Objective: No fevers, chills, nausea, vomiting, myalgias, arthralgias, or rash, headache, weight ganga nge. Physical Examination: Vital Signs: Blood pressure 111/60, pulse 85, respiratory rate 16, temperature 97.8, oxygen saturati on 97%. General: Ms. Munoz is resting comfortably, in no acute distress. HEENT: She is normocephalic, atraumatic. Sclerae anicteric. Oropharynx pink and moist. Neck: Supple. Chest: Clear. Musculoskeletal: No significant edema, cyanosis, or clubbing in the extremities. Laboratory Studies: No new laboratory studies compared to yesterday, except blood sugars ranged from 95 to 132. X-ray/imaging: No new x-rays or imaging. Medications: She is continuing the ciprofloxacin for urinary tract infection, Tylenol for pain, Love nox for DVT prophylaxis, guaifenesin for cough. She has the adrenal insufficiency, treated with Onur ef. Synthroid for hypothyroidism. Melatonin for insomnia. Zofran for nausea. Protonix for GE refl ux. She has potassium replacement for hypokalemia. Senokot S for constipation, and thiamine 100 mg daily. Progress Made With Physical And Occupational Therapy: Today with physical therapy, she performed sta nd and pivot transfers independently using a rolling walker. Srxrqi-sq-ccp transfers done independen tly. Patient's was at the bedside. Ambulated 250 feet independently with a rolling walker. Was able to go up and down 15 steps with contact guard assistance and with bilateral handrails. Goi ng up and down the curb independently with a rolling walker. With occupational therapy, she mobilize d from room to shower with independence. Independent with bathing, grooming, upper and lower body dr jassing, donning and doffing footwear, all with independence. Ms. Munzo has made excellent progress with physical and occupational therapy and soon will be ready f or discharge home with to continue with the therapy. Assessment And Plan: Ms. Munoz is a 68-year-old patient in the rehabilitation unit with critical ill ness myopathy and proximal muscle weakness in the lower and upper extremities for which she is recove ring very well. She is treated for urinary tract infection now, has hypothyroidism which is addresse d. She has renal insufficiency, insomnia, constipation, hypokalemia. Plan: 1.Continue with physical, occupational, and speech therapy for 3.5 hours, 5 of 7 days. 2.She has multiple comorbid conditions which are addressed by continuing her medications. Those are listed including for DVT prophylaxis, replacing thyroid medication and for adrenal insufficiency, iwona beasely is on a steroid regimen. Comorbidities That Are Impacting Her Rehabilitation: Her comorbidities are stably managed, do not ne gatively impact her rehabilitation. ELVI/MODL Voice ID: [id number] Report ID: [id number]
[2023-12-22 10:35] VITALS: BP 111/65; TEMP 97.9
--- NOTE | 2023-12-22 13:57 | P.RH.PN ---
Estimated Length of Stay: 11 Expected Discharge Date: 12/22/23 Discharge Disposition Plan: Home Family Support: Yes [facility] Goal: Mobility, Transfers, Self Care Vital Signs: Last Vital Signs Temp 97.9 F 12/22/23 08:00 Pulse 85 12/22/23 08:00 Resp 16 12/22/23 08:00 BP 111/65 12/22/23 08:00 Pulse Ox 96 12/22/23 08:00 Laboratory: Laboratory Last Values WBC 6.10 thou/uL (4.3-10.9) 12/20/23 03:36 RBC 3.52 M/uL (3.86-4.86) L 12/20/23 03:36 Hgb 10.2 g/dL (12.0-15.0) L 12/20/23 03:36 Hct 31.0 % (36.0-45.0) L 12/20/23 03:36 MCV 88.0 fL (80-100) 12/20/23 03:36 MCH 29.0 pg (27.0-35.0) 12/20/23 03:36 MCHC 33.0 g/dL (32.0-36.0) 12/20/23 03:36 RDW 18.3 % (12.1-15.2) H 12/20/23 03:36 Plt Count 257 thou/uL (152-406) 12/20/23 03:36 MPV 8.8 fL (7.6-11.3) 12/20/23 03:36 Neutrophils % 70.0 % (41.7-73.7) 12/20/23 03:36 Lymphocytes % 19.7 % (15.3-44.8) 12/20/23 03:36 Monocytes % 8.7 % (3.3-12.3) 12/20/23 03:36 Eosinophils % 1.3 % (0-4.4) 12/20/23 03:36 Basophils % 0.3 % (0-1.3) 12/20/23 03:36 Absolute Neutrophils 4.3 K/uL (1.8-8.0) 12/20/23 03:36 Absolute Lymphocytes 1.2 K/uL (0.7-4.9) 12/20/23 03:36 Absolute Monocytes 0.5 K/uL (0.1-1.3) 12/20/23 03:36 Absolute Eosinophils 0.1 K/uL (0-0.5) 12/20/23 03:36 Absolute Basophils 0.0 K/uL (0-0.5) 12/20/23 03:36 Sodium 141 mEq/L (136-145) 12/20/23 03:36 Potassium 3.9 mEq/L (3.5-5.1) 12/20/23 03:36 Chloride 107 mEq/L (98-107) 12/20/23 03:36 Carbon Dioxide 30 mEq/L (21-32) 12/20/23 03:36 Anion Gap 7.9 mEq/L (5.0-15.0) 12/20/23 03:36 BUN 11 mg/dL (7-18) 12/20/23 03:36 Creatinine 0.35 mg/dL (0.55-1.02) L 12/20/23 03:36 Est GFR (CKD-EPI) 112 ml/min (=/>90) 12/20/23 03:36 Glucose 103 mg/dL (74-106) 12/20/23 03:36 POC Glucose 111 mg/dL (65-120) 12/22/23 11:29 Calcium 8.6 mg/dL (8.5-10.1) 12/20/23 03:36 Magnesium 1.9 mg/dL (1.6-2.4) 12/16/23 07:32 Albumin 2.0 g/dL (3.4-5.0) L 12/16/23 07:32 Prealbumin 21.3 mg/dL (20-40) 12/16/23 07:32 Urine Color Dark-yellow (Yellow) 12/15/23 12:40 Urine Clarity Extremely turbid (Clear) H 12/15/23 12:40 Urine pH 5.5 (5.0-7.0) 12/15/23 12:40 Ur Specific [place] 1.018 (1.005-1.030) 12/15/23 12:40 Glucose (UA)(Auto) Negative (Negative) 12/15/23 12:40 Urine Ketones Negative (Negative) 12/15/23 12:40 Urine Blood Negative (Negative) 12/15/23 12:40 Urine Nitrite Negative (Negative) 12/15/23 12:40 Urine Bilirubin Negative (Negative) 12/15/23 12:40 Urine Urobilinogen Normal (Normal) 12/15/23 12:40 Ur Leukocyte Esterase 500 [place]/uL (Negative) H 12/15/23 12:40 Urine RBC 11-20 /HPF (None Seen) H 12/15/23 12:40 Urine WBC >50 /HPF (<5) H 12/15/23 12:40 Urine WBC Clumps Rare /HPF (None Seen) 12/15/23 12:40 Ur Squamous Epith Cells 10-20 /HPF (None Seen) 12/15/23 12:40 Calcium Oxalate Crystal Moderate /HPF (None Seen) H 12/15/23 12:40 Urine Bacteria 20-50 /HPF (<20) H 12/15/23 12:40 Hyaline Casts 0-5 /LPF (None Seen) 12/15/23 12:40 Urine Mucus 2+ /HPF (None Seen) 12/15/23 12:40 Urine Culture Reflexed Reflexed 12/15/23 12:40 Urine Total Protein Negative (Negative) 12/15/23 12:40 Weight: 166 lb Wound Present: No Closed Surgical Incision Present: No Negative Pressure Wound Therapy Present: No Physician Update: Labs are stable. Still has proximal lower extremities. She will D/C today with home health. 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 250' with independence, 15 steps with bilateral hand rails. CGA with car transfers. Still fatigues. Independent with home exercise. Summary: Patient's care plan and nursing home goals have been reviewed and revised as necessary. Please see the Rehabilitation Signature page for all necessary signatures.
== END 2023-12-22 14:55 | disposition home health service (06) | DRG 92 ==
LOC: 5TH 11:30
PROVIDERS: ADMIT Psychiatry & Neurology Neurology with Special Qualifications in Child Neurology; ATTEND Psychiatry & Neurology Neurology with Special Qualifications in Child Neurology
DX: G72.81 Critical illness myopathy (principal); B49 Unspecified mycosis; E24.9 Cushing's syndrome, unspecified; E87.1 Hypo-osmolality and hyponatremia; N39.0 Urinary tract infection, site not specified; E27.40 Unspecified adrenocortical insufficiency; E03.9 Hypothyroidism, unspecified; I10 Essential (primary) hypertension; E78.5 Hyperlipidemia, unspecified; F41.9 Anxiety disorder, unspecified; E88.09 Other disorders of plasma-protein metabolism, not elsewhere classified; E83.51 Hypocalcemia; E87.6 Hypokalemia; I95.9 Hypotension, unspecified; K59.00 Constipation, unspecified; G47.00 Insomnia, unspecified; K21.9 Gastro-esophageal reflux disease without esophagitis; R53.1 Weakness
CPT/HCPCS: 36415; 80048; 81001; 82040; 82947; 83735; 84134; 85025; 87077; 87086; 87088; 87186; 97110; 97112; 97116; 97163; 97165; 97530; 97542; J1650; J1815